=== PATIENT | male | born 1970 | race Caucasian/White ===

== ENCOUNTER 2017-01-03 05:55 | Day surgery (SDC) | payer OTHER ==
[~2017-01-03 05:55] MED LIST: Buffered Lidocaine 0.9% SYRIN* 5 ML/SYR SYRINGE INTRADERM ONE; Buffered Lidocaine 0.9% SYRIN* 5 ML/SYR SYRINGE ONE; Famotidine IV* 10 MG/ML 2 ML (20 mg) ONE
[2017-01-03] MEDS ORDERED: Famotidine IV* 10 MG/ML 2 ML (20 mg) IV ONE (06:00)
[2017-01-03] MEDS ORDERED: fentaNYL* 50 MCG/ML 2 ML VIAL (100 MCG VIAL) ONE (06:43)
[2017-01-03] MEDS ORDERED: KETAMINE HCL* 50 MG/ML 10 ML VIAL ONE (06:43)
[2017-01-03] MEDS ORDERED: Midazolam* 1 MG/ML 5 ML VIAL (5 MG) ONE ×2 (06:45)
[2017-01-03] MEDS ORDERED: DiMENhydriNATE IV* 50 MG/ML VIAL IV PUSH PRN (07:58)
[2017-01-03] MEDS ORDERED: oxyCODONE TAB* 5 MG TAB PO PRN (07:58)
[2017-01-03] MEDS ORDERED: Acetaminophen TAB* 325 MG PO PRN (07:58)
--- NOTE | 2017-01-03 08:01 | RAD ---
HISTORY: Mid back pain, remote trauma COMPARISONS: None TECHNIQUE: The following sequences were obtained of the thoracic spine: Sagittal T1 and T2-weighted images, sagittal STIR images, coronal T2-weighted images, and axial T2-weighted images. . FINDINGS: Localization is based on counting from C2 SPINAL CORD, CONUS, AND CAUDA EQUINA: The visualized spinal cord, conus, and cauda equina are normal in caliber, position, and signal intensity. ALIGNMENT: The alignment is normal. VERTEBRAL BODIES: The bones are normal in signal intensity. The vertebral bodies are preserved in height. There is mild anterolateral marginal osteophyte formation. JOINTS: There is mild osteoarthritis of the costovertebral articulations MUSCULATURE: Normal INTERVERTEBRAL DISCS: There is mild loss of intervertebral disc height and T2 signal throughout the spine. AXIAL IMAGES: There is no central canal stenosis or neuroforaminal narrowing. SOFT TISSUES: The visualized soft tissues of the chest and upper abdomen are unremarkable. OTHER: None. IMPRESSION: MILD DEGENERATIVE DISC DISEASE AND OSTEOARTHRITIS. NO SIGNIFICANT NEURAL FORAMINAL NARROWING OR CENTRAL CANAL STENOSIS.
[2017-01-03] MEDS ORDERED: Ondansetron INJ* 2 MG/ML VIAL ONE (08:02)
[2017-01-03] MEDS ORDERED: Propofol* 10 MG/ML 20 ML BTL IV PUSH ONE (08:02)
[2017-01-03 08:49] VITALS: BP 130/75
== END 2017-01-03 08:52 | disposition home or self-care (01) ==
LOC: OR 05:55
PROVIDERS: ATTEND Nurse Practitioner Family
DX: M54.6 Pain in thoracic spine (principal); M51.34 Other intervertebral disc degeneration, thoracic region; M47.894 Other spondylosis, thoracic region
CPT/HCPCS: 72146; J2250; J2405; J2704; J3010

== ENCOUNTER 2017-05-10 14:42 | Emergency (ER) | payer OTHER ==
[2017-05-10] MEDS ORDERED: Aspirin Low Dose CHEW TAB* 81 MG PO ONE (15:16)
[2017-05-10] MEDS ORDERED: NS 0.9% 1000 ML* 1,000 ML IV ONE (15:16)
--- NOTE | 2017-05-10 15:33 | RAD ---
INDICATION: Chest pain COMPARISON: February 05, 2016 TECHNIQUE: An AP portable view obtained at 1525 hours is submitted. FINDINGS: Bones/Soft Tissues: There are no acute bony findings. Cardiomediastinal: The cardiomediastinal silhouette is normal. Lungs: There are no infiltrates. Pleura: There are no pleural effusions. Other: None IMPRESSION: NO ACTIVE DISEASE.
[2017-05-10 15:43] LABS: Hematocrit 47 % (42-52); Hemoglobin 15.7 g/dl (14.0-18.0); Mean Corpuscular HGB Conc 34 g/dl (31-36); Mean Corpuscular Hemoglobin 29 pg (27-31); Mean Corpuscular Volume 86 fL (80-94); Mean Platelet Volume 7 um3 (7.4-10.4); Red Cell Distribution Width 14 % (10.5-15); White Blood Count 9.2 10^3/ul (3.5-10.8)
[2017-05-10 15:55] LABS: Albumin 4.6 g/dL (3.2-5.2); BUN/Creatinine Ratio 14.6 (8-20); C Reactive Protein 1.44 mg/L (< 5.00); Calcium 10.2 mg/dL (8.6-10.3); EGFR African American 119.4 (>60); EGFR Non-African American 92.9 (>60); Globulin 3.3 g/dL (2-4); Magnesium 2.1 mg/dL (1.9-2.7); Potassium 3.9 mmol/L (3.5-5.0); Total Bilirubin 0.6 mg/dL (0.2-1.0); Total Protein 7.9 g/dL (6.4-8.9)
[2017-05-10 15:58] LABS: Troponin I 0.01 ng/mL (<0.04)
[2017-05-10 15:59] LABS: Urine Bacteria Absent (Absent); Urine Bilirubin Negative (Negative); Urine Glucose Negative (Negative); Urine Nitrite Negative (Negative)
[2017-05-10 16:51] LABS: TSH (Thyroid Stimulating Horm) 0.86 mcIU/mL (0.34-5.60)
--- NOTE | 2017-05-10 19:03 | ED ---
Neena Thomas Emily, scribed for Moreno Wills MD on 05/10/17 at 1515 . HPI Chest Pain - HPI Summary HPI Summary: This patient is a 46 year old M presenting to [facility] accompanied by family with a chief complaint of mid sternal CP that radiates across his chest and into neck that began earlier today. The patient rates the pain 5/10 in severity. Symptoms aggravated by nothing. Symptoms alleviated by nothing. Patient reports numbness on tip of tongue, numbness on roof of mouth, SOB, occipital head pain. Patient denies fever. Medications reviewed. - History of Current Complaint Chief Complaint: EDChestPainROMI Time Seen by Provider: 05/10/17 15:02 Hx Obtained From: Patient Onset/Duration: Started Hours Ago, Still Present Timing: Constant Initial Severity: Moderate Current Severity: Moderate Pain Intensity: 5 Pain Scale Used: 0-10 Numeric Chest Pain Location: Mid Sternal Chest Pain Radiates: Yes Chest Pain Radiates To:: Neck Aggravating Factor(s): Nothing Alleviating Factor(s): Nothing Associated Signs and Symptoms: Positive: Other: - Positive numbness on tip of tongue, numbness on roof of mouth, SOB, occipital head pain. Negative fever - Allergy/Home Medications Allergies/Adverse Reactions: Allergies Allergy/AdvReac Type Severity Reaction Status Date / Time Adhesive Tape Allergy Severe Rash Verified 05/10/17 15:10 Niacin Allergy Severe Anaphylatic Verified 05/10/17 15:10 Shock Home Medications: Home Medications Baclofen TAB* [Lioresal TAB*] 10 mg PO TID 05/10/17 [History Confirmed 05/10/17] Ranitidine TAB (NF) [Zantac TAB (NF)] 150 mg PO BID PRN 05/10/17 [History Confirmed 05/10/17] PMH/Surg Hx/FS Hx/Imm Hx Previously Healthy: No Endocrine/Hematology History: Denies: Hx Diabetes Cardiovascular History: Reports: Hx Hypercholesterolemia, Hx Hypertension - controlled with medication, Other Cardiovascular Problems/Disorders - hyperlipidemia Denies: Hx Pacemaker/ICD Respiratory History: Reports: Hx Asthma Denies: Other Respiratory Problems/Disorders GI History: Reports: Hx Gastroesophageal Reflux Disease - controlled with medication, Hx Hiatal Hernia Denies: Other GI Disorders History: Denies: Hx Dialysis, Hx Renal Disease Musculoskeletal History: Reports: Hx Arthritis, Hx Bursitis, Hx Tendonitis, Other Musculoskeletal History - 01/03/17 MRI to diagnose issues lower issues with lower back Sensory History: Reports: Hx Contacts or Glasses - wears glasses Denies: Hx Hearing Aid Opthamlomology History: Reports: Hx Contacts or Glasses - wears glasses Neurological History: Reports: Hx Headaches - hx of, Hx Migraine, Other Neuro Impairments/Disorders - hx of traumatic brain injury Psychiatric History: Reports: Hx Anxiety - severe claustrophobia Denies: Hx Panic Disorder - Surgical History Surgery Procedure, Year, and Place: RIGHT CLAVICLE REPAIR, [place], [facility] [place] removal x3 right groin at doctors office. CYST BEHIND EAR Hx Anesthesia Reactions: No Infectious Disease History: No Infectious Disease History: Denies: Traveled Outside the [place] in Last 30 Days - Family History Known Family History: Positive: Cardiac Disease, Hypertension, Other - GERD - Social History Occupation: Unemployed Lives: With Family Alcohol Use: None Alcohol Amount: N/A beer Substance Use Type: Reports: None Hx Tobacco Use: Yes Smoking Status (MU): Former Smoker Type: Cigarettes Amount Used/How Often: 1 1/2 PPD Have You Smoked in the Last Year: Yes Review of Systems Negative: Fever Positive: Chest Pain Positive: Shortness Of Breath Positive: Headache, Numbness - On tip of tongue and roof of mouth All Other Systems Reviewed And Are Negative: Yes Physical Exam Triage Information Reviewed: Yes Vital Signs On Initial Exam: Initial Vitals Temp Pulse Resp BP Pulse Ox 97.0 F 65 16 176/98 98 05/10/17 14:45 05/10/17 14:45 05/10/17 14:45 05/10/17 14:45 05/10/17 14:45 Vital Signs Reviewed: Yes Appearance: Positive: Well-Appearing, No Pain Distress Skin: Positive: Warm, Skin Color Reflects Adequate Perfusion, Dry Head/Face: Positive: Normal Head/Face Inspection Eyes: Positive: EOMI, LALO ENT: Positive: Normal ENT inspection Neck: Positive: Supple, Nontender Respiratory/Lung Sounds: Positive: Clear to Auscultation, Breath Sounds Present Cardiovascular: Positive: RRR Abdomen Description: Positive: Soft, Other: - Tenderness in the epigastric region Bowel Sounds: Positive: Present Musculoskeletal: Positive: Normal, Strength/ROM Intact Neurological: Positive: Normal, Sensory/Motor Intact, Alert, Oriented to Person Place, Time Psychiatric: Positive: Affect/Mood Appropriate - Silvano Coma Scale Coma Scale Total: 15 Diagnostics - Vital Signs Vital Signs Temp Pulse Resp BP Pulse Ox 05/10/17 15:06 65 19 95 05/10/17 15:05 153/84 05/10/17 14:45 97.0 F 65 16 176/98 98 - Laboratory Lab Results: Lab Results 05/10/17 05/10/17 05/10/17 Range/Units 15:30 15:30 15:30 WBC (3.5-10.8) 10^3/ul RBC (4.0-5.4) 10^6/ul Hgb (14.0-18.0) g/dl Hct (42-52) % MCV (80-94) fL MCH (27-31) pg MCHC (31-36) g/dl RDW (10.5-15) % Plt Count (150-450) 10^3/ul MPV (7.4-10.4) um3 Neut % (Auto) (38-83) % Lymph % (Auto) (25-47) % Kane % (Auto) (1-9) % Eos % (Auto) (0-6) % Baso % (Auto) (0-2) % Absolute Neuts (auto) (1.5-7.7) 10^3/ul Absolute Lymphs (auto) (1.0-4.8) 10^3/ul Absolute Monos (auto) (0-0.8) 10^3/ul Absolute Eos (auto) (0-0.6) 10^3/ul Absolute Basos (auto) (0-0.2) 10^3/ul Absolute Nucleated RBC 10^3/ul Nucleated RBC % INR (Anticoag Therapy) 0.89 (0.77-1.02) APTT 31.7 (26.0-36.3) seconds D-Dimer, Quantitative < 200 (Less Than 230) ng/mL Sodium 140 (133-145) mmol/L Potassium 3.9 (3.5-5.0) mmol/L Chloride 105 (101-111) mmol/L Carbon Dioxide 28 (22-32) mmol/L Anion Gap 7 (2-11) mmol/L BUN 13 (6-24) mg/dL Creatinine 0.89 (0.67-1.17) mg/dL Est GFR ( Amer) 119.4 (>60) Est GFR (Non-Af Amer) 92.9 (>60) BUN/Creatinine Ratio 14.6 (8-20) Glucose 102 H (70-100) mg/dL Lactic Acid (0.5-2.0) mmol/L Calcium 10.2 (8.6-10.3) mg/dL Magnesium 2.1 (1.9-2.7) mg/dL Total Bilirubin 0.60 (0.2-1.0) mg/dL AST 19 (13-39) U/L ALT 21 (7-52) U/L Alkaline Phosphatase 44 (34-104) U/L Total Creatine Kinase 152 (10-223) U/L CK-MB (CK-2) 2.5 (0.6-6.3) ng/mL Troponin I 0.01 (<0.04) ng/mL C-Reactive Protein 1.44 (< 5.00) mg/L B-Natriuretic Peptide 36 ( - 100) pg/mL Total Protein 7.9 (6.4-8.9) g/dL Albumin 4.6 (3.2-5.2) g/dL Globulin 3.3 (2-4) g/dL Albumin/Globulin Ratio 1.4 (1-3) Lipase 36 (11.0-82.0) U/L TSH 0.86 (0.34-5.60) mcIU/mL Urine Color Urine Appearance Urine pH (5-9) Ur Specific Morton (1.010-1.030) Urine Protein (Negative) Urine Ketones (Negative) Urine Blood (Negative) Urine Nitrate (Negative) Urine Bilirubin (Negative) Urine Urobilinogen (Negative) Ur Leukocyte Esterase (Negative) Urine WBC (Auto) (Absent) Urine RBC (Auto) (Absent) Urine Bacteria (Absent) Urine Glucose (Negative) 05/10/17 05/10/17 05/10/17 Range/Units 15:30 15:30 15:42 WBC 9.2 (3.5-10.8) 10^3/ul RBC 5.40 (4.0-5.4) 10^6/ul Hgb 15.7 (14.0-18.0) g/dl Hct 47 (42-52) % MCV 86 (80-94) fL MCH 29 (27-31) pg MCHC 34 (31-36) g/dl RDW 14 (10.5-15) % Plt Count 205 (150-450) 10^3/ul MPV 7 L (7.4-10.4) um3 Neut % (Auto) 66.1 (38-83) % Lymph % (Auto) 22.8 L (25-47) % Kane % (Auto) 6.3 (1-9) % Eos % (Auto) 3.3 (0-6) % Baso % (Auto) 1.5 (0-2) % Absolute Neuts (auto) 6.1 (1.5-7.7) 10^3/ul Absolute Lymphs (auto) 2.1 (1.0-4.8) 10^3/ul Absolute Monos (auto) 0.6 (0-0.8) 10^3/ul Absolute Eos (auto) 0.3 (0-0.6) 10^3/ul Absolute Basos (auto) 0.1 (0-0.2) 10^3/ul Absolute Nucleated RBC 0.01 10^3/ul Nucleated RBC % 0.1 INR (Anticoag Therapy) (0.77-1.02) APTT (26.0-36.3) seconds D-Dimer, Quantitative (Less Than 230) ng/mL Sodium (133-145) mmol/L Potassium (3.5-5.0) mmol/L Chloride (101-111) mmol/L Carbon Dioxide (22-32) mmol/L Anion Gap (2-11) mmol/L BUN (6-24) mg/dL Creatinine (0.67-1.17) mg/dL Est GFR ( Amer) (>60) Est GFR (Non-Af Amer) (>60) BUN/Creatinine Ratio (8-20) Glucose (70-100) mg/dL Lactic Acid 0.7 (0.5-2.0) mmol/L Calcium (8.6-10.3) mg/dL Magnesium (1.9-2.7) mg/dL Total Bilirubin (0.2-1.0) mg/dL AST (13-39) U/L ALT (7-52) U/L Alkaline Phosphatase (34-104) U/L Total Creatine Kinase (10-223) U/L CK-MB (CK-2) (0.6-6.3) ng/mL Troponin I (<0.04) ng/mL C-Reactive Protein (< 5.00) mg/L B-Natriuretic Peptide ( - 100) pg/mL Total Protein (6.4-8.9) g/dL Albumin (3.2-5.2) g/dL Globulin (2-4) g/dL Albumin/Globulin Ratio (1-3) Lipase (11.0-82.0) U/L TSH (0.34-5.60) mcIU/mL Urine Color Straw Urine Appearance Clear Urine pH 7.0 (5-9) Ur Specific Morton 1.004 L (1.010-1.030) Urine Protein Negative (Negative) Urine Ketones Negative (Negative) Urine Blood 1+ H (Negative) Urine Nitrate Negative (Negative) Urine Bilirubin Negative (Negative) Urine Urobilinogen Negative (Negative) Ur Leukocyte Esterase Negative (Negative) Urine WBC (Auto) Trace(0-5/hpf) (Absent) Urine RBC (Auto) Trace(0-2/hpf) (Absent) Urine Bacteria Absent (Absent) Urine Glucose Negative (Negative) 05/10/17 Range/Units 18:00 WBC (3.5-10.8) 10^3/ul RBC (4.0-5.4) 10^6/ul Hgb (14.0-18.0) g/dl Hct (42-52) % MCV (80-94) fL MCH (27-31) pg MCHC (31-36) g/dl RDW (10.5-15) % Plt Count (150-450) 10^3/ul MPV (7.4-10.4) um3 Neut % (Auto) (38-83) % Lymph % (Auto) (25-47) % Kane % (Auto) (1-9) % Eos % (Auto) (0-6) % Baso % (Auto) (0-2) % Absolute Neuts (auto) (1.5-7.7) 10^3/ul Absolute Lymphs (auto) (1.0-4.8) 10^3/ul Absolute Monos (auto) (0-0.8) 10^3/ul Absolute Eos (auto) (0-0.6) 10^3/ul Absolute Basos (auto) (0-0.2) 10^3/ul Absolute Nucleated RBC 10^3/ul Nucleated RBC % INR (Anticoag Therapy) (0.77-1.02) APTT (26.0-36.3) seconds D-Dimer, Quantitative (Less Than 230) ng/mL Sodium (133-145) mmol/L Potassium (3.5-5.0) mmol/L Chloride (101-111) mmol/L Carbon Dioxide (22-32) mmol/L Anion Gap (2-11) mmol/L BUN (6-24) mg/dL Creatinine (0.67-1.17) mg/dL Est GFR ( Amer) (>60) Est GFR (Non-Af Amer) (>60) BUN/Creatinine Ratio (8-20) Glucose (70-100) mg/dL Lactic Acid (0.5-2.0) mmol/L Calcium (8.6-10.3) mg/dL Magnesium (1.9-2.7) mg/dL Total Bilirubin (0.2-1.0) mg/dL AST (13-39) U/L ALT (7-52) U/L Alkaline Phosphatase (34-104) U/L Total Creatine Kinase (10-223) U/L CK-MB (CK-2) (0.6-6.3) ng/mL Troponin I 0.03 (<0.04) ng/mL C-Reactive Protein (< 5.00) mg/L B-Natriuretic Peptide ( - 100) pg/mL Total Protein (6.4-8.9) g/dL Albumin (3.2-5.2) g/dL Globulin (2-4) g/dL Albumin/Globulin Ratio (1-3) Lipase (11.0-82.0) U/L TSH (0.34-5.60) mcIU/mL Urine Color Urine Appearance Urine pH (5-9) Ur Specific Morton (1.010-1.030) Urine Protein (Negative) Urine Ketones (Negative) Urine Blood (Negative) Urine Nitrate (Negative) Urine Bilirubin (Negative) Urine Urobilinogen (Negative) Ur Leukocyte Esterase (Negative) Urine WBC (Auto) (Absent) Urine RBC (Auto) (Absent) Urine Bacteria (Absent) Urine Glucose (Negative) Result Diagrams: 05/10/17 15:30 05/10/17 15:30 Lab Statement: Any lab studies that have been ordered have been reviewed, and results considered in the medical decision making process. - Radiology CXR Radiology Interpretation Completed By: Radiologist - CXR reveals, per radiologist, no active disease. Dr. Wills has reviewed this radiology report. - EKG 1453 Cardiac Rate: NL EKG Rhythm: Sinus Rhythm - 62 BPM EKG Interpretation: No ectopy. Flipped T waves in III 1808 Cardiac Rate: Bradycardia EKG Rhythm: Sinus Rhythm - 57 BPM EKG Interpretation: Flipped T in III. No ectopy EKG Comparison: No Significant Change - from EKG earlier today Chest Pain Course/Dx - Course Course Of Treatment: PAIN WENT AWAY IN THE ED. DISCUSSED RESULTS WITH THE PATIENT AND HIS . WE DISCUSSED ADMISSION; HE DECLINED. HE PREFERED TO RECHECK A TROPONIN. THE REPEAT TROPONIN WAS INCREASED TO 0.03 FROM 0.01. WHILE STILL NORMAL, THIS IS AN INCREASE. THIS WAS DISCUSSED WITH THE PATIENT AND HIS AND I RECOMMENDED ADMISSION; THE PATIENT DECLINED ADMISSION. HE PLANS TO FOLLOW UP WITH HIS PMD. HE AGREED TO RETURN TO THE EMERGENCY DEPARTMENT WITH ANY CHEST PAIN OR ANY CONCERNS. HE WAS CHEST PAIN FREE AT DISCHARGE. - Diagnoses Provider Diagnoses: Chest pain Discharge - Discharge Plan Condition: Stable Disposition: HOME Patient Education Materials: Chest Pain (ED) Referrals: Aden Dumont NP [Primary Care Provider] - Additional Instructions: FOLLOW UP WITH YOUR DOCTOR. YOUR REPEAT TROPONIN WAS NORMAL BUT, IT DID INCREASE WHICH MAY INDICATE DAMAGE TO THE HEART. CALL YOU DOCTOR TO ARRANGE A CARDIAC STRESS TEST AND RETURN TO THE EMERGENCY DEPARTMENT AT ANY TIME WITH ANY CHEST PAIN OR CONCERNS. RETURN TO THE EMERGENCY DEPARTMENT FOR ANY WORSENING OF YOUR CONDITION: CHEST PAIN, SHORTNESS OF BREATH, YOU FEEL ILL OR QUESTIONS OR CONCERNS. The documentation as recorded by the Neena nolasco Emily accurately reflects the service I personally performed and the decisions made by me, Moreno Wills MD.
[2017-05-10 19:28] VITALS: BP 139/86
== END 2017-05-10 19:28 | disposition home or self-care (01) ==
LOC: ED 14:42
DX: R07.89 Other chest pain (principal); R20.0 Anesthesia of skin; R06.02 Shortness of breath; R51 Headache; R00.1 Bradycardia, unspecified; E78.00 Pure hypercholesterolemia, unspecified; I10 Essential (primary) hypertension; E78.5 Hyperlipidemia, unspecified; J45.909 Unspecified asthma, uncomplicated; K21.9 Gastro-esophageal reflux disease without esophagitis; F41.9 Anxiety disorder, unspecified; F40.240 Claustrophobia; Z88.8 Allergy status to other drugs, medicaments and biological substances; Z91.048 Other nonmedicinal substance allergy status; Z87.891 Personal history of nicotine dependence
CPT/HCPCS: 36415; 71010; 80053; 81003; 81015; 82550; 82553; 83605; 83690; 83735; 83880; 84443; 84484; 85025; 85379; 85610; 85730; 86140; 93005; 96360; 99283; A9270-GY

== ENCOUNTER 2017-09-09 13:31 | Emergency (ER) | payer OTHER ==
--- NOTE | 2017-09-09 14:29 | RAD ---
HISTORY: Chest pain, shortness of breath COMPARISONS: May 10, 2017 VIEWS: 4: Frontal dual-energy and lateral views of the chest. FINDINGS: CARDIOMEDIASTINAL SILHOUETTE: The cardiomediastinal silhouette is normal. FREDERIC: The frederic are normal. PLEURA: The costophrenic angles are sharp. No pleural abnormalities are noted. LUNG PARENCHYMA: The lungs are clear. ABDOMEN: The upper abdomen is clear. There is no subphrenic gas. BONES AND SOFT TISSUES: No bone or soft tissue abnormalities are noted. OTHER: None. IMPRESSION: NO ACTIVE CARDIOPULMONARY DISEASE.
[2017-09-09] MEDS ORDERED: Nitroglycerin TAB 0.4 MG* 0.4 MG TAB SL ONE (14:33)
[2017-09-09] MEDS ORDERED: Aspirin 81 mg CHEW TAB* 81 MG TAB.CHEW PO ONE (14:33)
[2017-09-09 14:38] LABS: ABS Basophils 0.1 10^3/ul (0-0.2); ABS Eosinophils 0.2 10^3/ul (0-0.6); ABS Lymphocytes 1.5 10^3/ul (1.0-4.8); ABS Monocytes 0.4 10^3/ul (0-0.8); ABS Neutrophils 5.5 10^3/ul (1.5-7.7); ABS Nucleated RBC 0 10^3/ul; Eosinophil % 3.1 % (0-6); Hematocrit 48 % (42-52); Hemoglobin 16.2 g/dl (14.0-18.0); Lymphocyte % 19.5 % (25-47); Mean Corpuscular HGB Conc 34 g/dl (31-36); Mean Corpuscular Hemoglobin 29 pg (27-31); Mean Corpuscular Volume 87 fL (80-94); Mean Platelet Volume 7.1 um3 (7.4-10.4); Nucleated Red Blood Cells % 0.1; Platelet Count 210 10^3/ul (150-450); Red Blood Count 5.49 10^6/ul (4.0-5.4); Red Cell Distribution Width 13 % (10.5-15); White Blood Count 7.8 10^3/ul (3.5-10.8)
[2017-09-09 15:05] LABS: EGFR Non-African American 81.2 (>60)
[2017-09-09 18:29] VITALS: BP 000/00
--- NOTE | 2017-09-09 21:21 | CONS ---
ADDENDUM INCLUDED ON THIS REPORT CC: Dr. Lenz; Aden Dumont NP * CONSULTATION REPORT: DATE OF CONSULT: 09/09/17 CONSULTED TO: Ayo Umaña MD CONSULTATION REQUESTED BY: Brandon Glover MD in the Emergency Room. ATTENDING HOSPITALIST: Ayo Umaña MD * (DICTATED BY JUAN DAVID JACOB) CHIEF COMPLAINT: Chest pain. HISTORY OF PRESENT ILLNESS: Mr. Jay is a 46-year-old gentleman, who presented to the emergency room with complaints of sudden onset of retrosternal chest pain. The patient has a past medical history significant for COPD, hypertension, GERD with known hiatal hernia, hyperlipidemia, and a history of chest pain in the past. He tells me that he had a stress test done in April of last year; however, there was no record showing such diagnostic study. He explains occasional episodes of chest pain that he relates mostly to his hiatal hernia. He has been seen by a GI doctor at [place], [place] and is scheduled to see a surgeon to discuss hiatal hernia repair that he thinks is a source of his intermittent chest discomfort. He notes that his chest pain this afternoon appeared to have a sudden onset localized to the left side and radiated to his jaw and axilla. The pain lasted for a few minutes and eventually went away with no exacerbation factor or relieving factor. He felt a little dizzy with some headache, but denies any diaphoresis, nausea, vomiting or any other associated symptoms. The patient was evaluated in the emergency room and his EKG was obtained that revealed no acute changes indicating ischemia or ST depression. He also had laboratory workup that was all within normal limits as well as flat troponins. Given his age and and medical comorbidities, we were asked to see the patient for further evaluation and to rule out acute coronary syndrome. During discussion at the history part with the patient, he showed his desire to go home without any need for observation overnight. PAST MEDICAL HISTORY: As mentioned above, significant for COPD, back pain. The patient has been a chronic patient of pain clinic. He also has a history of GERD, hypertension, and right shoulder pain, cervical spondylosis without myelopathy, history of traumatic brain injury, hyperlipidemia, and history of recurrent chest pain. PAST SURGICAL HISTORY: Significant for right rotator cuff repair back in 2016 as well as a skin cyst excision 5 times. CURRENT MEDICATIONS: His medications at home include: 1. Norvasc 10 mg p.o. daily. 2. Aspirin 81 mg p.o. daily. 3. Baclofen 15/20 mg p.o. t.i.d. 4. Lotensin 10 mg p.o. daily. 5. Doxycycline 100 mg p.o. b.i.d. 6. Gabapentin 600 mg p.o. t.i.d. 7. Prevacid 15 mg p.o. b.i.d. 8. Mobic 15 mg p.o. daily. 9. Opana extended release oxymorphone 30 mg p.o. q.12 hours. 10. Inderal LA 160 mg p.o. daily. 11. Zantac 150 mg p.o. b.i.d. 12. Zocor 10 mg p.o. nightly. ALLERGIES: He is allergic to NIACIN and ADHESIVE TAPE. FAMILY HISTORY: He denies any family history of coronary artery disease or stroke. SOCIAL HISTORY: The patient is on disability. 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 He lives with his . He is a former smoker and alcohol drinker, who quit both of them approximately 5 years ago. He denies illicit drug use. His is a surrogate healthcare decision maker. REVIEW OF SYSTEMS: See HPI, otherwise 14-point review of systems is essentially negative. PHYSICAL EXAM: General: He is a healthy appearing, overweight, middle-aged male, appears comfortable, and in no acute distress or discomfort. Vitals revealed a temperature of 98.2, pulse of 58, respirations of 13, O2 sat of 96% on room air, and blood pressure of 135/80. HEENT: Head is normocephalic, atraumatic. Sclerae anicteric. PERRLA. EOMs intact. Oropharynx is pink and moist. Neck: Supple. Trachea midline. No cervical adenopathy or thyromegaly. Lungs: Clear to auscultation bilaterally. Heart: Regular rate and rhythm. Normal S1 and S2 without rubs, murmurs or gallops. Back with normal curvature. No CVA tenderness. Abdomen: Soft, nontender, and nondistended. There are no hernias, masses or hepatosplenomegaly. Bowel sounds were normoactive in all quadrants. Extremities: Without cyanosis, clubbing or edema. Neurologic: Grossly intact. Rectal Exam: Deferred at this time. DIAGNOSTIC STUDIES/LAB DATA: Laboratory workup: CBC today with white count of 7800, hemoglobin 16.2, hematocrit of 48, and platelets of 210. Chemistry with sodium 141, potassium 4.1, chloride 105, CO2 of 28, BUN 12, creatinine 1.0. His glucose is 112 and hemoglobin A1c has not been checked since April 2015 at 6.3 and lactic acid normal, troponin was 0 and 0 at draws at 1430 and 1630. LFTs within normal limits. Accessory Diagnostic Data: EKG was done today and reveled no acute ST changes. IMPRESSION: A 46-year-old gentleman with a past medical history of hypertension , hyperlipidemia, obesity, and frequent chest pain, who was seen in emergency room today with complaints of sudden onset of substernal chest pain that started this afternoon requiring observation admission to rule out acute coronary syndrome. PLAN: 1. Chest pain. I went on and discussed with the patient all the findings of his physical exam and laboratory workup. He wishes to go home after he learned that his second troponin was negative. I expressed to him that ultimate risks of leaving including cardiac event or even . The patient understands the risks involved and he wishes to go home and he said he would return to to the emergency room if he experienced any recurrent chest pain tonight. I discussed the case with Dr. Glover, who will prepare AMA paperwork to be signed by the patient. 2. Hypertension, seemed to be controlled. He will continue his medication at home. 3. Hyperlipidemia. He will continue his statin at home. It is to be noted that the patient is a full code and again, he will likely to sign AMA and leave from the emergency department, and he was advised to return if any recurrent chest discomfort. JUAN DAVID JACOB ADDENDUM: This case was discussed and reviewed with JUAN DAVID Jacob. Mr. Jay is a 46-year-old male with a past medical history of COPD, chronic pain, GERD, hypertension, hyperlipidemia, obesity that presents to the emergency room with complaints of chest pain to the left side of his chest radiating to his left arm. He accepted aspirin in the emergency room, but refused nitroglycerin stating that they would cause a headache. His EKG showed sinus rhythm at 63 beats per minute with T-wave inversions in lead III, flat T- waves in aVF, but those changes were already present in April 2017. The patient reports negative stress test as outpatient 4 months ago, but the report is not available at this time. His first troponin was negative and plan was for the patient to be admitted as observation to rule out coronary syndrome and to have a repeat stress test if necessary. The report of his prior stress test was requested, but is not yet available. Unfortunately, the patient decided that he does not want to stay in the hospital and will sign out from the emergency room against medical advice. He was advised about the risk of his decision as his workup is not complete and at this point, it is not clear if his chest pain is cardiac in nature or not. He is aware of the risk including but not limited to fatal arrhythmia and . He is willing to take this risk at this time and will leave the emergency room against medical advice. AYO Umaña MD [id number]/[facility] #: [id number] Rito [id number]/CPS #: [id number] OTF
--- NOTE | 2017-09-09 21:29 | CONS ---
CC: Dr. Lenz; Aden Dumont NP * CONSULTATION REPORT: ADDENDUM: This case was discussed and reviewed with JUAN DAVID Pope. Mr. Jay is a 46-year-old male with a past medical history of COPD, chronic pain, GERD, hypertension, hyperlipidemia, obesity that presents to the emergency room with complaints of chest pain to the left side of his chest radiating to his left arm. He accepted aspirin in the emergency room, but refused nitroglycerin stating that they would cause a headache. His EKG showed sinus rhythm at 63 beats per minute with T-wave inversions in lead III, flat T- waves in aVF, but those changes were already present in April 2017. The patient reports negative stress test as outpatient 4 months ago, but the report is not available at this time. His first troponin was negative and plan was for the patient to be admitted as observation to rule out coronary syndrome and to have a repeat stress test if necessary. The report of his prior stress test was requested, but is not available at this time. Unfortunately, the patient decided that he does not want to stay in the hospital and will sign out from the emergency room against medical advice. He was advised about the risk of his decision as his workup is not complete and at this point, it is not clear if his chest pain is cardiac in nature or not. He is aware of the risk including but not limited to fatal arrhythmia and . He is willing to take this risk at this time and will leave the emergency room against medical advice. [id number]/[facility] #: [id number] OTF
== END 2017-09-09 18:27 | disposition left against medical advice (07) ==
LOC: ED 13:31
DX: R07.9 Chest pain, unspecified (principal); I10 Essential (primary) hypertension; E78.5 Hyperlipidemia, unspecified; Z79.82 Long term (current) use of aspirin
CPT/HCPCS: 36415; 71046; 80053; 83605; 84484; 85025; 93005; 99282; A9270-GY

== ENCOUNTER 2018-05-26 15:27 | Emergency (ER) | payer OTHER ==
--- NOTE | 2018-05-26 15:34 | ED ---
HPI Chest Pain - HPI Summary HPI Summary: Patient is a 47-year-old male with a history of chronic pain presents to the ED with chest pain acute onset at 1:30p after fighting with his . No hx of anxiety, but a significant hx of presenting to the ED with chest pains. He states they always do a full workup - but never find the root cause. States just prior to arrival he took 3 baby chewable aspirin, however the pain remained. On arrival to the ED the pain is dissipated from a 9 out of 10 to a 1 out of 10. He endorses pain which is sharp like occurring in the upper chest area radiating down the right arm. Denies any nausea, vomiting, diarrhea, diaphoresis, recent illness, fevers, sweats, chills. Denies any weakness or headaches. He states he feels at his baseline otherwise. He does take a baby aspirin, simvastatin and panel daily. Previously a patient of Dr. Mathias. - History of Current Complaint Time Seen by Provider: 05/26/18 15:28 Hx Obtained From: Patient Onset/Duration: Started Hours Ago Timing: Constant Initial Severity: Moderate Pain Scale Used: Adult Non Verbal Chest Pain Location: Mid Sternal Chest Pain Radiates: Yes Chest Pain Radiates To:: Arm - right Character: Crushing Aggravating Factor(s): Nothing Alleviating Factor(s): Rest Associated Signs and Symptoms: Positive: Negative, Anxiety, Recent Stress. Negative: Headaches, Numbness, Chills, Lightheadedness, Diaphoresis, Calf Pain/ Swelling, Wheezing, Nasal Congestion - Risk Factors Pulmonary Embolism Risk Factors: Negative TAD Risk Factors: Negative AMI/ACS Risk Factors: Sedentary Lifestyle, Obesity - Allergy/Home Medications Allergies/Adverse Reactions: Allergies Allergy/AdvReac Type Severity Reaction Status Date / Time Adhesive Tape Allergy Severe Rash Verified 04/23/18 08:24 niacin Allergy Anaphylatic Verified 04/23/18 08:24 Shock PMH/Surg Hx/FS Hx/Imm Hx Previously Healthy: Yes Endocrine/Hematology History: Denies: Hx Diabetes Cardiovascular History: Reports: Hx Hypercholesterolemia, Hx Hypertension - ON MEDICATION FOR, Other Cardiovascular Problems/Disorders - hyperlipidemia Denies: Hx Pacemaker/ICD Respiratory History: Reports: Hx Asthma Denies: Other Respiratory Problems/Disorders GI History: Reports: Hx Gastroesophageal Reflux Disease - ON MEDICATION FOR, Hx Hiatal Hernia Denies: Other GI Disorders History: Denies: Hx Dialysis, Hx Renal Disease Musculoskeletal History: Reports: Hx Arthritis - SPINE, LEFT KNEE, Hx Bursitis - LEFT KNEE, Hx Tendonitis - LEFT KNEE, Other Musculoskeletal History - 01/03/17 MRI to diagnose issues lower issues with lower back Sensory History: Reports: Hx Contacts or Glasses - glasses Denies: Hx Hearing Aid Opthamlomology History: Reports: Hx Contacts or Glasses - glasses Neurological History: Reports: Hx Headaches - HX OF, STILL CURRENTLY GETS- ON MEDICATION FOR, Hx Migraine - HX OF, STILL CURRENTLY GETS- ON MEDICATION FOR, Other Neuro Impairments/Disorders - hx of traumatic brain injury ~2-3 YEARS AGO Psychiatric History: Reports: Hx Anxiety - severe claustrophobia Denies: Hx Panic Disorder - Surgical History Surgery Procedure, Year, and Place: [place] [facility] [place] right groin at doctors office. CYST BEHIND EAR. COLONOSCOPY. ENDOSCOPY Hx Anesthesia Reactions: No - Immunization History Hx Pertussis Vaccination: No Immunizations Up to Date: Yes - Family History Known Family History: Positive: Cardiac Disease, Hypertension, Other - GERD - Social History Occupation: Employed Full-time Lives: With Family Alcohol Use: None Alcohol Amount: N/A beer Hx Substance Use: No Substance Use Type: Reports: None Hx Tobacco Use: Yes Smoking Status (MU): Former Smoker Type: Cigarettes Amount Used/How Often: 1 1/2 PPD X 30+ YEARS Have You Smoked in the Last Year: No Review of Systems Negative: Fever, Chills, Fatigue, Skin Diaphoresis Positive: Chest Pain. Negative: Palpitations Negative: Shortness Of Breath, Cough Negative: Abdominal Pain, Vomiting, Diarrhea, Nausea Genitourinary: Negative Positive: no symptoms reported, see HPI Negative: Arthralgia Skin: Negative Positive: Anxious All Other Systems Reviewed And Are Negative: Yes Physical Exam Triage Information Reviewed: Yes Vital Signs Reviewed: Yes Appearance: Positive: Well-Appearing, Well-Nourished Skin: Positive: Warm, Skin Color Reflects Adequate Perfusion Head/Face: Positive: Normal Head/Face Inspection Eyes: Positive: EOMI Neck: Positive: Supple, No Lymphadenopathy Respiratory/Lung Sounds: Positive: Clear to Auscultation, Breath Sounds Present Cardiovascular: Positive: RRR, Pulses are Symmetrical in both Upper and Lower Extremities Musculoskeletal: Positive: Normal, Strength/ROM Intact Neurological: Positive: Speech Normal Psychiatric: Positive: Normal AVPU Assessment: Alert Diagnostics - Laboratory Result Diagrams: 05/26/18 16:22 05/26/18 16:22 Lab Statement: Any lab studies that have been ordered have been reviewed, and results considered in the medical decision making process. Chest Pain Course/Dx - Course Course Of Treatment: During the course of treatment, cardiac workup was obtained. Troponin 0.00. All of the labs WNL. Chest x-ray WNL. Discussed treatment plans with patient and offered admission for further workup. He declines this. I stated due to his troponin and chest x-ray both negative and he is currently asymptomatic, he is able to follow back up with his PCP. He has also had multiple visits for chest pain in the past with negative workups. It appears this was anxiety induced atypical chest pain. EKG NSR. - Chest Pain Differential Diagnosis/HQI/PQRI: Angina, Chest Wall - Diagnoses Provider Diagnoses: Chest pain due to psychological stress, Atypical chest pain Discharge - Sign-Out/Discharge Documenting (check all that apply): Patient Departure - Discharge Plan Condition: Stable Disposition: HOME Referrals: Aden Dumont NP [Primary Care Provider] - Additional Instructions: Follow up as soon as possible with your PCP Today, as discussed, troponin and EKG are both normal - Billing Disposition and Condition Condition: STABLE Disposition: Home
--- OUTSIDE RECORDS SUMMARY | 2018-05-26 15:45 | XMS REPORT | Continuity of Care Document ---
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 Aden Dumont Primary Care Physician Unavailable Payers Type Date Identification Numbers Payment Provider Subscriber Policy Number: [id number] [facility] Anurag Cantu [employer] PayID: [id number] [address] [place] [address] Advance Directives Description No Information Available Problems Description No Information Family History Description No Information Available Social History Type Date Description Comments Sex Unknown Allergies, Adverse Reactions, Alerts Description No Known Drug Allergies Medications Medication Date Status Form Strength Qnty SIG Indications Ordering Provider Amlodipine 0 Active Tablets 10mg 1 by Unknown Besylate 000 mouth every day Benazepril HCL 0 Active Tablets 10mg Unknown 000 Ranitidine HCL 0 Active Capsules 150mg 1 by Unknown 000 mouth twice a day Gabapentin 0 Active Capsules 300mg 2 by Unknown 000 mouth three times a day Simvastatin 000 Active Tablets 10mg 1 by Unknown 000 mouth every day Inderal LA 0 Active Caps ER 1 by Unknown 000 24HR mouth every day Lansoprazole [address] 15mg 1 by Unknown 000 mouth every day Meloxicam 0 Active Tablets 7.5mg 1 by Unknown 000 mouth every day Baclofen /0 Active Tablets Unknown 000 Aspir-[address] 81mg 1 by Unknown 000 mouth every day Immunizations Description No Information Available Vital Signs Date Vital Result Comment 05/08/2018 1:28pm Weight 258.00 lb Height 68 inches 5'8" BMI (Body Mass Index) 39.2 kg/m2 BP Systolic 134 mmHg BP Diastolic 87 mmHg Heart Rate 92 /min O2 % BldC Oximetry 96 % Body Temperature 98.5 F Pain Level 4 Results Description No Information Available Procedures Description No Information Available Encounters Description No Information Available Plan of Treatment No Information Available
[2018-05-26 16:31] LABS: ABS Basophils 0.1 10^3/ul (0-0.2); ABS Eosinophils 0.3 10^3/ul (0-0.6); ABS Lymphocytes 1.4 10^3/ul (1.0-4.8); ABS Monocytes 0.5 10^3/ul (0-0.8); ABS Neutrophils 7.9 10^3/ul (1.5-7.7); ABS Nucleated RBC 0 10^3/ul; Eosinophil % 2.7 %; Hematocrit 47 % (42-52); Hemoglobin 15.6 g/dl (14.0-18.0); Lymphocyte % 13.5 %; Mean Corpuscular HGB Conc 33 g/dl (31-36); Mean Corpuscular Hemoglobin 29 pg (27-31); Mean Corpuscular Volume 88 fL (80-94); Mean Platelet Volume 7.2 fL (7.4-10.4); Nucleated Red Blood Cells % 0; Platelet Count 205 10^3/ul (150-450); Red Cell Distribution Width 13 % (10.5-15); White Blood Count 10.1 10^3/ul (3.5-10.8)
[2018-05-26 16:37] LABS: INR 0.9 (0.77-1.02)
[2018-05-26 16:49] LABS: Albumin 4.7 g/dL (3.2-5.2); Albumin/Globulin Ratio 1.5 (1-3); BUN/Creatinine Ratio 13.3 (8-20); Calcium 9.7 mg/dL (8.6-10.3); EGFR Non-African American 82.7 (>60); Globulin 3.1 g/dL (2-4); Magnesium 2.1 mg/dL (1.9-2.7); Potassium 4.2 mmol/L (3.5-5.0); Total Bilirubin 0.5 mg/dL (0.2-1.0); Total Protein 7.8 g/dL (6.4-8.9)
[2018-05-26 17:16] VITALS: BP 168/98
== END 2018-05-26 17:16 | disposition home or self-care (01) ==
LOC: ED 15:27
DX: R07.89 Other chest pain (principal); F43.9 Reaction to severe stress, unspecified; Z87.891 Personal history of nicotine dependence; E78.00 Pure hypercholesterolemia, unspecified; I10 Essential (primary) hypertension; K21.9 Gastro-esophageal reflux disease without esophagitis; J45.909 Unspecified asthma, uncomplicated; E78.5 Hyperlipidemia, unspecified; E66.9 Obesity, unspecified
CPT/HCPCS: 36415; 71046; 80053; 82553; 83605; 83735; 83880; 84484; 85025; 85610; 93005; 99282

== ENCOUNTER 2018-12-05 16:25 | Emergency (ER) | payer OTHER ==
--- OUTSIDE RECORDS SUMMARY | 2018-12-05 16:30 | XMS REPORT | Continuity of Care Document ---
:1970 External Reference #:[id number] Author Name Tiana Desir Care Team Providers Name Role Phone Aden Dumont NP Primary Care Physician Unavailable Payers Date Identification Numbers Payment Provider Subscriber Policy Number: [id number] Zbigniew Jay JR Group Name: [id number] [address] PayID: [id number] [place] [address] Effective: 2011 Policy Number: [id number] RASTA Wayne Anurag Jay JR Expires: 2013 PayID: [id number] [address] [address] [place] [address] Advance Directives Type Date Description Status Comment Other Directive 03/19/2016 Health Care Proxy Current and Verified Problems Active Problems Provider Date Chest pain Richard Purvis M.D., [facility], [facility] Onset: 05/10/2015 Hyperlipidemia Richard Purvis M.D., [facility], [facility] Onset: 05/10/2015 Essential hypertension Richard Purvis M.D., [facility], [facility] Onset: 05/10/2015 Tobacco use Richard Purvis M.D., [facility], [facility] Onset: 05/10/2015 Chronic pain Aden Dumont NP Onset: 08/13/2015 Gastroesophageal reflux disease Aden Dumont NP Onset: 08/13/2015 History of traumatic brain injury Aden Dumnot NP Onset: 09/08/2015 Claustrophobia Aden Dumont NP Onset: 09/12/2015 Note: Non responsive to oral sedatives. Unable to have MRI's or nuclear stress test because of severe claustrophobia Neck pain Hardeep Mccrary M.D. Onset: 01/01/2016 Low back pain Hardeep Mccrary M.D. Onset: 01/01/2016 Sprain of shoulder and upper arm Vanessa Lay MD Onset: 02/22/2016 Injury of shoulder region Vanessa Lay MD Onset: 02/22/2016 Cervical spondylosis without myelopathy Hardeep Mccrary M.D. Onset: 03/04/2016 Localized, secondary osteoarthritis of the Vanessa Lay MD Onset: 04/23/2016 shoulder region Family History Date Family Member(s) Observation Comments General Heart Disease General Thyroid Disease General Diabetes General Cancer Father No Current Problems Mother due to Unknown () Siblings 3 Social History Type Date Description Comments Sex Unknown Marital Status Lives With Occupation Unemployed since 1997 Tobacco Use Start: Unknown End: Former Cigarette Smoker Unknown Tobacco Use Start: Unknown Vaping No nicotine. 1-2 puffs per day Smoking Status Reviewed: 11/13/18 Vaping No nicotine. 1-2 puffs per day ETOH Use Denies alcohol use Recreational Drug Use Denies Drug Use Tobacco Use Start: Unknown End: Patient is a former 02/2017 now vapes, Unknown smoker no nicotine Exercise Type/Frequency Does not exercise Allergies, Adverse Reactions, Alerts Active Allergies Reaction Severity Comments Date Niacin Urticaria 05/10/2015 Adhesive Tape 04/19/2016 Medications Active Medications SIG Qnty Indications Ordering Date Provider Ranitidine HCL Take 1 Tablet By 60tabs K44.9 Aden Dumont NP 09/13/2018 150mg Mouth Twice A Day Tablets as Needed Vistaril take 1 to 2 60caps F41.9 Aden Dumont NP 05/27/2018 25mg capsules by mouth Capsules four times a day as needed for anxiety/sleep Pantoprazole Sodium 1 by mouth every 30tabs K44.9 Aden Dumnot NP [address] Sildenafil Citrate 1 tab 30 mins prior 5tabs Aden Dumont NP 02/06/2018 to intercourse 100mg Tablets Meclizine HCL take one tablet 45tabs H81.10 Aden Dumont NP 07/14/2017 25mg every 6 hours as Tablets needed for dizziness Baclofen Take 1 And 1/2 To 2 180tabs S16.1xxA Aden Dumont NP 04/03/2017 10mg Tablets Tablets By Mouth Every 8 Hours as Needed For Muscle Spasms *Max 6/Day* Meloxicam Take 1-2 Tablets By 60tabs Aden Dumont NP 08/21/2015 7.5mg Mouth Once Daily as Tablets Needed Gabapentin Take 2 Capsules By 180caps Aden Dumont NP 08/21/2015 300mg Mouth 3 Times Daily Capsules Benazepril HCL Take 1 Tablet By 30tabs I10 Aden Dumont NP 08/11/2015 10mg Mouth Daily Tablets Amlodipine Besylate Take 1 Tablet By 30tabs Aden Dumont NP 08/11/2015 Mouth Daily 10mg Tablets Simvastatin Take 1 Tablet By 30tabs E78.5 Aden Dumont NP 06/09/2012 10mg Mouth Every Night Tablets Propranolol HCL ER Take One Capsule By 30caps Aden Dumont NP Mouth Every Night 160mg Caps ER 24HR Oxymorphone HCL ER 1 tablet po Am/PM ( [facility], alternate time MD Didier 30mg Tablets ER 12HR taken of the 10mg tablets) Oxymorphone HCL 1 tablet 3x a day [facility] 10mg MD Didier Tablets History Medications Levofloxacin one tablet daily 5tabs J32.0 Aden Dumont NP 07/15/2018 - 750mg for 5 days. 07/20/2018 Tablets Levofloxacin one tablet daily 5tabs Darrian32.0 Aden Dumont NP 07/10/2018 - 750mg for 5 days. 07/14/2018 Tablets Triamcinolone apply thin film 80gm Aden Dumont NP 05/27/2018 - Acetonide twice daily 11/12/2018 0.1% Cream Levofloxacin one by mouth 10tabs J32.0 Aden Dumont NP 04/13/2018 - 500mg daily for 10 days 04/23/2018 Tablets Doxycycline Hyclate one tablet twice 20caps Darrian32.0 Aden Dumont NP 2017 - daily for 10 04/13/2018 100mg Capsules days. Levofloxacin one by mouth 10tabs Aden Dumont NP 01/15/2018 - 500mg daily for 10 days 01/23/2018 Tablets Cefuroxime Axetil one tablet twice 20tabs J01.90 Aden Dumont NP 2017 - daily for 10 01/08/2018 250mg Tablets days. Doxycycline Hyclate one tablet twice 28caps J01.90 Aden Dumont NP 2017 - daily for 14 12/29/2017 100mg Capsules days. Doxycycline Hyclate one tablet twice 20caps J01.90 Aden Dumont NP 2017 - daily for 10 09/18/2017 100mg Capsules days. Doxycycline Hyclate one tablet twice 20caps Aden Dumont NP 07/25/2017 - daily for 10 08/04/2017 100mg Capsules days. Clarithromycin One tablet twice 28tabs J01.90 Aden Dumont NP 07/14/2017 - 500mg daily x 14 days 07/23/2017 Tablets Triamcinolone apply thin film 80gm R21 Aden Dumont NP 07/14/2017 - Acetonide twice daily 05/27/2018 0.1% Cream Lansoprazole Take 1 Capsule By 60caps K44.9 Aden Dumont NP 06/06/2017 - 15mg Mouth Twice Daily 09/11/[address] Iglesias 1 by mouth every 10tabs J01.90 Aden Dumont NP 06/06/2017 - 500mg day 06/16/2017 Tablets Dexilant 1 by mouth every 30caps K44.9 Aden Dumont NP 05/12/2017 - 30mg day 05/12/2017 Capsules Amoxicillin/Clavulan take one tablet 20tabs J01.90 Aden Dumont NP 2016 - ate Potassium q12 hours for 10 05/22/2017 days 875-125mg Tablets Lansoprazole 1 by mouth twice 60caps K44.9 Aden Dumont NP 05/12/2017 - 15mg day 05/13/2017 Capsules Levofloxacin one by mouth 7tabs J01.90 Aden Dumont NP 04/03/2017 - 500mg daily for 7 days 05/11/2017 Tablets Ranitidine 150 one by mouth 60tabs K44.9 Aden Dumont NP 04/03/2017 - Maximum Strength twice a day as 09/13/2018 needed 150mg Tablets Amoxicillin/Clavulan take one tablet 20tabs J01.90 Aden Dumont NP 2016 - ate Potassium q12 hours for 10 04/05/2017 days 875-125mg Tablets Proctosol HC apply thin film 28.350gm K64.9 Aden Dumont NP 01/30/2017 - 2.5% to affected area 05/05/2017 Cream 2-4 times daily Anusol-HC one suppository 30units K64.9 Aden Dumont NP 01/20/2017 - 25mg twice daily for 2 01/30/2017 Suppository weeks. Amoxicillin/Clavulan take one tablet 20tabs J01.90 Aden Duomnt NP 2016 - ate Potassium q12 hours for 10 01/27/2017 days 875-125mg Tablets Silver Sulfadiazine apply a thin film 25gm T25.022A Aden Dumont NP 2016 - of cream to open 01/20/2017 1% Cream skin twice a day with dressing changes. Amoxicillin/Clavulan take one tablet 20tabs J01.90 Aden Dumont NP 2016 - ate Potassium q12 hours for 10 10/12/2016 days 875-125mg Tablets Cephalexin take one tablet 21tabs L72.3 Aden Dumont NP 05/31/2016 - 500mg every 8 hours for 06/07/2016 Tablets 7 days Chlorzoxazone One tablet every 60tabs Aden Dumont NP 03/06/2016 - 500mg 8 hours as needed 05/13/2017 Tablets Augmentin 1 tablet by mouth 20tabs J01.90 Aden Dumont NP 03/05/2016 - 875-125mg q12 hours for 10 03/15/2016 Tablets days Skelaxin one tablet every 60tabs Aden Dumont NP 03/05/2016 - 800mg 8 hours as needed 03/06/2016 Tablets for muscle pain/spasm Amoxicillin/Clavulan take one tablet 20tabs J01.90 Aden Dumont NP 2015 - ate Potassium q12 hours for 10 12/31/2015 days 875-125mg Tablets Blood Pressure for home 1units I10 Aden Dumont NP 08/11/2015 - Monitor Automatic monitoring, 3 11/12/2018 With Large Cuff times weekly Kit Amoxicillin/Clavulan take one tablet 20tabs J01.90 Aden Dumont NP 2015 - ate Potassium q12 hours for 10 08/21/2015 days 875-125mg Tablets Pantoprazole Sodium Take 1 Tablet By 30tabs K44.9 Aden Dumont NP 2015 - Mouth Every Day 09/03/2017 40mg Tablets Lorazepam 1 tablet po as Johny Duvall, - 1mg Tablets needed 90 mins 12/07/2015 prior to MRI Methocarbamol 2-3 tablet by 60tabs Aden Dumont NP - 750mg mouth daily as 03/05/2016 Tablets needed Ropinirole HCL take 1 tablet by 90tabs Maame Herrera, - 1mg mouth three times N.P. 06/06/2017 Tablets daily for restless legs Aspir-Low 1 by mouth every Unknown - 81mg day Unknown Tablets Aspirin Adult Low 1 by mouth every Unknown - Dose day 11/12/2018 81mg Tablets Propranolol HCL ER 1 by mouth every Unknown - day Unknown 160mg Caps ER 24HR Lansoprazole one twice a day K44.9 Unknown - 15mg 02/24/2018 Medications Administered in Office Medication SIG Qnty Indications Ordering Provider Date Technetium TC 99M Richard Purvis M.D., [facility], 06/12/2015 Tetrofosmin, Per Unit Dose FSCAI Up To 40 Millicuries Injection Immunizations CPT Code Status Date Vaccine Reaction Lot # [id number] Given 03/19/2016 Influ Virus Vaccine, no reaction noted ... [id number] Quadrivalent, Split Virus, Im Fluzone not PF Vital Signs Date Vital Result Comment 11/13/2018 8:12am Height 70 inches 5'10" Weight 265.25 lb Heart Rate 56 /min BP Systolic Sitting 134 mmHg Lue large cuff BP Diastolic Sitting 78 mmHg Lue large cuff Respiratory Rate 16 /min O2 % BldC Oximetry 96 % On Ra BMI (Body Mass Index) 38.1 kg/m2 09/28/2018 7:23am Height 70 inches 5'10" Weight 255.00 lb Heart Rate 60 /min BP Systolic Sitting 120 mmHg Lue large cuff BP Diastolic Sitting 76 mmHg Lue large cuff Respiratory Rate 12 /min O2 % BldC Oximetry 96 % BMI (Body Mass Index) 36.6 kg/m2 Neck Circumference in inches 17 07/10/2018 9:55am Height 70 inches 5'10" Weight 267.50 lb Heart Rate 56 /min BP Systolic 115 mmHg BP Diastolic 70 mmHg Body Temperature 97.9 F O2 % BldC Oximetry 98 % BMI (Body Mass Index) 38.4 kg/m2 05/28/2018 10:16am Height 70 inches 5'10" Weight 260.00 lb Heart Rate 72 /min BP Systolic Sitting 130 mmHg BP Diastolic Sitting 82 mmHg Respiratory Rate 18 /min Body Temperature 97.6 F BMI (Body Mass Index) 37.3 kg/m2 05/27/2018 8:47am Height 70 inches 5'10" Weight 260.00 lb Heart Rate 64 /min BP Systolic 124 mmHg BP Diastolic 78 mmHg Body Temperature 97.5 F O2 % BldC Oximetry 97 % BMI (Body Mass Index) 37.3 kg/m2 04/08/2018 12:58pm Height 70 inches 5'10" Weight 254.00 lb Heart Rate 58 /min BP Systolic 123 mmHg BP Diastolic 75 mmHg O2 % BldC Oximetry 98 % BMI (Body Mass Index) 36.4 kg/m2 02/06/2018 4:33pm Height 70 inches 5'10" Weight 251.00 lb Heart Rate 57 /min BP Systolic 121 mmHg BP Diastolic 78 mmHg O2 % BldC Oximetry 98 % BMI (Body Mass Index) 36.0 kg/m2 12/29/2017 1:35pm Height 70 inches 5'10" Weight 251.75 lb Heart Rate 61 /min BP Systolic 107 mmHg BP Diastolic 64 mmHg Body Temperature 98.0 F O2 % BldC Oximetry 96 % BMI (Body Mass Index) 36.1 kg/m2 11/03/2017 1:59pm Height 70 inches 5'10" Weight 252.25 lb Heart Rate 64 /min BP Systolic 111 mmHg BP Diastolic 71 mmHg Body Temperature 97.2 F O2 % BldC Oximetry 97 % BMI (Body Mass Index) 36.2 kg/m2 10/03/2017 8:21am Height 70 inches 5'10" Weight 248.00 lb w/ shoes Heart Rate 56 /min reg BP Systolic Sitting 110 mmHg Rue BP Diastolic Sitting 74 mmHg Rue BP Systolic Standing 108 mmHg Rue BP Diastolic Standing 74 mmHg Rue Respiratory Rate 16 /min BMI (Body Mass Index) 35.6 kg/m2 Ejection Fraction 55-60% as of 2014 echo 09/11/2017 9:51am Weight 250.50 lb Heart Rate 58 /min BP Systolic 122 mmHg BP Diastolic 76 mmHg Body Temperature 96.5 F O2 % BldC Oximetry 98 % 09/08/2017 3:39pm Weight 256.25 lb Heart Rate 67 /min BP Systolic 132 mmHg BP Diastolic 76 mmHg Body Temperature 97.3 F O2 % BldC Oximetry 94 % 07/14/2017 4:25pm Weight 256.00 lb Heart Rate 61 /min BP Systolic 128 mmHg BP Diastolic 74 mmHg O2 % BldC Oximetry 95 % 06/09/2017 3:14pm Weight 258.00 lb Heart Rate 60 /min BP Systolic 120 mmHg BP Diastolic 70 mmHg Body Temperature 97.3 F O2 % BldC Oximetry 96 % 06/06/2017 11:00am Weight 257.00 lb Heart Rate 61 /min BP Systolic 110 mmHg BP Diastolic 70 mmHg Body Temperature 97.3 F O2 % BldC Oximetry 95 % 05/14/2017 3:06pm Height 70 inches 5'10" Weight 250.00 lb w/ shoes Heart Rate 60 /min BP Systolic Sitting 126 mmHg lue large cuff BP Diastolic Sitting 84 mmHg lue large cuff BP Systolic Standing 118 mmHg lue large cuff BP Diastolic Standing 84 mmHg lue large cuff Respiratory Rate 18 /min BMI (Body Mass Index) 35.9 kg/m2 Ejection Fraction no echo 05/12/2017 10:19am Height 70 inches 5'10" Weight 253.00 lb Heart Rate 59 /min BP Systolic Sitting 126 mmHg BP Diastolic Sitting 88 mmHg Body Temperature 98.6 F O2 % BldC Oximetry 97 % BMI (Body Mass Index) 36.3 kg/m2 04/03/2017 9:16am Weight 254.50 lb Heart Rate 60 /min BP Systolic Sitting 136 mmHg BP Diastolic Sitting 82 mmHg O2 % BldC Oximetry 98 % 03/26/2017 11:08am Weight 251.50 lb Heart Rate 96 /min BP Systolic Sitting 132 mmHg BP Diastolic Sitting 90 mmHg BP Systolic Recheck 134 mmHg BP Diastolic Recheck 82 mmHg Body Temperature 98.0 F O2 % BldC Oximetry 60 % 02/26/2017 8:55am Height 70 inches 5'10" Weight 248.00 lb Heart Rate 64 /min Respiratory Rate 16 /min Body Temperature 97.1 F Pain Level 5 BMI (Body Mass Index) 35.6 kg/m2 01/30/2017 2:35pm Heart Rate 67 /min BP Systolic Sitting 122 mmHg BP Diastolic Sitting 82 mmHg Body Temperature 96.9 F O2 % BldC Oximetry 98 % 01/20/2017 8:54am Heart Rate 68 /min BP Systolic Sitting 132 mmHg BP Diastolic Sitting 74 mmHg O2 % BldC Oximetry 98 % 12/06/2016 1:57pm Weight 246.00 lb Heart Rate 67 /min BP Systolic Sitting 122 mmHg BP Diastolic Sitting 74 mmHg Body Temperature 96.9 F O2 % BldC Oximetry 93 % 10/02/2016 1:57pm Weight 248.00 lb Heart Rate 74 /min BP Systolic Sitting 128 mmHg BP Diastolic Sitting 70 mmHg Body Temperature 98.4 F O2 % BldC Oximetry 97 % 07/19/2016 11:37am Height 70 inches 5'10" Weight 241.50 lb Heart Rate 62 /min BP Systolic 120 mmHg BP Diastolic 62 mmHg Body Temperature 97.8 F O2 % BldC Oximetry 93 % BMI (Body Mass Index) 34.6 kg/m2 07/03/2016 11:05am Height 70 inches 5'10" Weight 240.00 lb Heart Rate 81 /min BP Systolic Sitting 128 mmHg BP Diastolic Sitting 78 mmHg Respiratory Rate 18 /min BMI (Body Mass Index) 34.4 kg/m2 05/31/2016 9:09am Weight 242.00 lb with shoes Heart Rate 66 /min BP Systolic Sitting 120 mmHg BP Diastolic Sitting 88 mmHg Body Temperature 98.6 F O2 % BldC Oximetry 98 % 05/10/2016 8:15am Height 70 inches 5'10" Weight 242.00 lb w/ shoes Heart Rate 70 /min reg BP Systolic Sitting 124 mmHg Rue, lg cuff BP Diastolic Sitting 82 mmHg Rue, lg cuff BP Systolic Standing 120 mmHg Rue BP Diastolic Standing 84 mmHg Rue Respiratory Rate 16 /min BMI (Body Mass Index) 34.7 kg/m2 Ejection Fraction 55-60% as of 05/25/15 echo 05/07/2016 9:04am Weight 243.00 lb with shoes Heart Rate 70 /min BP Systolic Sitting 116 mmHg BP Diastolic Sitting 82 mmHg O2 % BldC Oximetry 98 % 04/23/2016 8:18am Height 70 inches 5'10" Weight 230.00 lb Pain Level 6 BMI (Body Mass Index) 33.0 kg/m2 04/19/2016 1:01pm Height 70 inches 5'10" Weight 230.00 lb Heart Rate 66 /min BP Systolic 118 mmHg BP Diastolic 78 mmHg Respiratory Rate 18 /min Body Temperature 98.2 F BMI (Body Mass Index) 33.0 kg/m2 04/04/2016 9:22am Height 69 inches 5'9" Weight 238.00 lb Heart Rate 64 /min BP Systolic Sitting 126 mmHg BP Diastolic Sitting 84 mmHg Respiratory Rate 16 /min Pain Level 6 BMI (Body Mass Index) 35.1 kg/m2 03/19/2016 9:02am Height 69 inches 5'9" Weight 238.00 lb Heart Rate 61 /min BP Systolic 129 mmHg BP Diastolic 80 mmHg Body Temperature 98.3 F O2 % BldC Oximetry 96 % BMI (Body Mass Index) 35.1 kg/m2 03/07/2016 8:44am Height 70 inches 5'10" Weight 235.00 lb Heart Rate 60 /min BP Systolic Sitting 126 mmHg BP Diastolic Sitting 68 mmHg Respiratory Rate 16 /min Pain Level 9 BMI (Body Mass Index) 33.7 kg/m2 03/05/2016 11:43am Weight 235.00 lb Heart Rate 64 /min BP Systolic Sitting 142 mmHg BP Diastolic Sitting 84 mmHg Respiratory Rate 15 /min Body Temperature 98.4 F O2 % BldC Oximetry 99 % 03/04/2016 11:47am Height 70 inches 5'10" Weight 233.00 lb BP Systolic Sitting 126 mmHg BP Diastolic Sitting 80 mmHg Pain Level 3 BMI (Body Mass Index) 33.4 kg/m2 02/22/2016 8:37am Height 70 inches 5'10" Weight 233.00 lb Heart Rate 60 /min BP Systolic Sitting 136 mmHg BP Diastolic Sitting 84 mmHg Respiratory Rate 16 /min Pain Level 7 BMI (Body Mass Index) 33.4 kg/m2 02/05/2016 2:00pm Weight 233.00 lb w/ shoes Heart Rate 80 /min BP Systolic Sitting 130 mmHg BP Diastolic Sitting 80 mmHg O2 % BldC Oximetry 98 % Ra 01/01/2016 9:06am Height 70.5 inches 5'10.50" Weight 234.00 lb Heart Rate 78 /min BP Systolic Sitting 124 mmHg BP Diastolic Sitting 84 mmHg Pain Level 6 BMI (Body Mass Index) 33.1 kg/m2 12/20/2015 9:23am Weight 237.00 lb Heart Rate 60 /min BP Systolic Sitting 138 mmHg BP Diastolic Sitting 88 mmHg Body Temperature 97.3 F O2 % BldC Oximetry 98 % 12/08/2015 8:47am Weight 233.75 lb Heart Rate 61 /min BP Systolic Sitting 141 mmHg BP Diastolic Sitting 93 mmHg O2 % BldC Oximetry 97 % 08/21/2015 9:26am Height 68.5 inches 5'8.50" Weight 241.00 lb Heart Rate 64 /min BP Systolic Sitting 134 mmHg BP Diastolic Sitting 88 mmHg Respiratory Rate 15 /min Body Temperature 98.0 F O2 % BldC Oximetry 98 % BMI (Body Mass Index) 36.1 kg/m2 08/11/2015 9:24am Height 68.5 inches 5'8.50" Weight 242.00 lb Heart Rate 66 /min BP Systolic Sitting 158 mmHg BP Diastolic Sitting 94 mmHg Body Temperature 98.1 F O2 % BldC Oximetry 96 % BMI (Body Mass Index) 36.3 kg/m2 05/10/2015 9:25am Height 70 inches 5'10" Weight 240.25 lb with shoes Heart Rate 66 /min BP Systolic Sitting 138 mmHg LA lg cuff BP Diastolic Sitting 78 mmHg LA lg cuff BP Systolic Standing 140 mmHg LA lg cuff BP Diastolic Standing 90 mmHg LA lg cuff Respiratory Rate 16 /min BMI (Body Mass Index) 34.5 kg/m2 Ejection Fraction 55-60% date 06/17/12 ECHO 01/02/2011 2:40pm Height 70 inches 5'10" Weight 240.00 lb Heart Rate 74 /min BP Systolic 133 mmHg BP Diastolic 90 mmHg BMI (Body Mass Index) 34.4 kg/m2 Results Test Date Facility Test Result H/L Range Note Laboratory test 05/26/2018 [facility] B-Type Natriuretic 86 pg/ mL <=[address] [place] [address] [phone] Lactic Acid 0.5 mmol/L N 0.5-2.0 1 CKMB 05/26/2018 [facility] CKMB ng/mL 3.2 ng/mL N 0.6-6.[address] [place] [address] [phone] CBC Auto Diff 05/26/2018 [facility] White Blood 10.1 10^3/uL N 3.5-10.[address] [place] [address] [phone] Red Blood Count 5.40 10^6/uL N 4.00-5.40 Hemoglobin 15.6 g/dL N 14.0-18.0 Hematocrit 47 % N 42-52 Mean Corpuscular Volume 88 fL N 80-94 Mean Corpuscular Hemoglobin 29 pg N 27-31 Mean Corpuscular HGB Conc 33 g/dL N 31-36 Red Cell Distribution Width 13 % N 10.5-15 Platelet Count 205 10^3/uL N 150-450 Mean Platelet Volume 7.2 fL Low 7.4-10.4 Abs Neutrophils 7.9 10^3/uL High 1.5-7.7 Abs Lymphocytes 1.4 10^3/uL N 1.0-4.8 Abs Monocytes 0.5 10^3/uL N 0-0.8 Abs Eosinophils 0.3 10^3/uL N 0-0.6 Abs Basophils 0.1 10^3/uL N 0-0.2 Abs Nucleated RBC 0 10^3/uL Granulocyte % 77.7 % Lymphocyte % 13.5 % Monocyte % 5.2 % Eosinophil % 2.7 % Basophil % 0.9 % Nucleated Red Blood Cells % 0 Inr/Protime 05/26/2018 [facility] Inr 0.90 N 0.77-1.02 [address] [place] [address] [phone] Laboratory test 05/26/2018 [facility] Magnesium 2.1 mg/dL N 1.9-2.7 [place] [address] [phone] Troponin-I (TnI) 0.01 ng/mL <0.04 2 Comp Metabolic Panel 05/26/2018 [facility] Sodium 141 mmol/L N 135-145 [address] [place] [address] [phone] Potassium 4.2 mmol/L N 3.5-5.0 Chloride 106 mmol/L N 101-111 Co2 Carbon Dioxide 28 mmol/L N 22-32 Anion Gap 7 mmol/L N 2-11 Glucose 113 mg/dL High 70-100 Blood Urea Nitrogen 13 mg/dL N 6-24 Creatinine 0.98 mg/dL N 0.67-1.17 BUN/Creatinine Ratio 13.3 N 8-20 Calcium 9.7 mg/dL N 8.6-10.3 Total Protein 7.8 g/dL N 6.4-8.9 Albumin 4.7 g/dL N 3.2-5.2 Globulin 3.1 g/dL N 2-4 Albumin/Globulin Ratio 1.5 N 1-3 Total Bilirubin 0.50 mg/dL N 0.2-1.0 Alkaline Phosphatase 57 U/L N 34-104 Alt 20 U/L N 7-52 Ast 19 U/L N 13-39 Egfr Non- 82.7 >60 Egfr 100.1 >60 3 CBC Auto Diff 02/09/2018 [facility] White Blood 5.8 10^3/uL N 3.5-10.[address] [place] [address] [phone] Red Blood Count 5.20 10^6/uL N 4.00-5.40 Hemoglobin 15.3 g/dL N 14.0-18.0 Hematocrit 45 % N 42-52 Mean Corpuscular Volume 87 fL N 80-94 Mean Corpuscular Hemoglobin 30 pg N 27-31 Mean Corpuscular HGB Conc 34 g/dL N 31-36 Red Cell Distribution Width 14 % N 10.5-15 Platelet Count 188 10^3/uL N 150-450 Mean Platelet Volume 7.5 um3 N 7.4-10.4 Abs Neutrophils 3.3 10^3/uL N 1.5-7.7 Abs Lymphocytes 1.7 10^3/uL N 1.0-4.8 Abs Monocytes 0.5 10^3/uL N 0-0.8 Abs Eosinophils 0.3 10^3/uL N 0-0.6 Abs Basophils 0.1 10^3/uL N 0-0.2 Abs Nucleated RBC 0 10^3/uL Granulocyte % 55.9 % N 38-83 Lymphocyte % 29.9 % N 25-47 Monocyte % 8.4 % High 0-7 Eosinophil % 4.6 % N 0-6 Basophil % 1.2 % N 0-2 Nucleated Red Blood Cells % 0.3 Basic Metabolic Panel 02/09/2018 [facility] Sodium 141 mmol/L N 135-[address] [place] [address] [phone] Potassium 4.6 mmol/L N 3.5-5.0 Chloride 106 mmol/L N 101-111 Co2 Carbon Dioxide 29 mmol/L N 22-32 Anion Gap 6 mmol/L N 2-11 Glucose 107 mg/dL High 70-100 Blood Urea Nitrogen 15 mg/dL N 6-24 Creatinine 0.95 mg/dL N 0.67-1.17 BUN/Creatinine Ratio 15.8 N 8-20 Calcium 9.3 mg/dL N 8.6-10.3 Egfr Non- 85.7 >60 Egfr 103.7 >60 4 Laboratory test 02/09/2018 [facility] Vitamin B12 793 pg/mL N 180-914 5 finding [place], [place] [id number] [phone] Testosterone Free 02/09/2018 [facility] Free 7.15 4.26-16.4 6 & Total 101 Testosterone ng/[place] [address] ng/dl [phone] Testosterone 298 ng/dL 240-950 7 Laboratory test 11/06/2017 [facility] Hemoglobin A1c 6.1 % High 4.0-5.6 8 finding 101 (Glyco HGB) [place], [place] [id number] [phone] Laboratory test 11/04/2017 [facility] Vitamin B12 294 N 180- 914 9 finding 101 pg/mL [place], [place] [id number] [phone] TSH (Thyroid Stim Horm) 0.54 mcIU/mL N 0.34-5.60 Lipid Profile 11/04/2017 [facility] Triglycerides 114 mg/dL 10 (Trig/Chol/HDL) [address] [place], [place] [id number] [phone] Cholesterol 176 mg/dL 11 HDL Cholesterol 49.8 mg/dL 12 LDL Cholesterol 103 mg/dL 13 Laboratory test 11/04/2017 [facility] Glucose 122 mg/dL High 70-100 finding [address] [place], [place] [id number] [phone] Laboratory test 09/09/2017 [facility] Troponin-I 0.00 ng/mL < 0.04 finding (TnI) [place] [address] [phone] CBC Auto Diff 09/09/2017 [facility] White Blood 7.8 N 3.5- 10.[address] Count 10^3/[place] [address] [phone] Red Blood Count 5.49 10^6/uL High 4.0-5.4 Hemoglobin 16.2 g/dL N 14.0-18.0 Hematocrit 48 % N 42-52 Mean Corpuscular Volume 87 fL N 80-94 Mean Corpuscular Hemoglobin 29 pg N 27-31 Mean Corpuscular HGB Conc 34 g/dL N 31-36 Red Cell Distribution Width 13 % N 10.5-15 Platelet Count 210 10^3/uL N 150-450 Mean Platelet Volume 7.1 um3 Low 7.4-10.4 Abs Neutrophils 5.5 10^3/uL N 1.5-7.7 Abs Lymphocytes 1.5 10^3/uL N 1.0-4.8 Abs Monocytes 0.4 10^3/uL N 0-0.8 Abs Eosinophils 0.2 10^3/uL N 0-0.6 Abs Basophils 0.1 10^3/uL N 0-0.2 Abs Nucleated RBC 0 10^3/uL Granulocyte % 70.6 % N 38-83 Lymphocyte % 19.5 % Low 25-47 Monocyte % 5.6 % N 0-7 Eosinophil % 3.1 % N 0-6 Basophil % 1.2 % N 0-2 Nucleated Red Blood Cells % 0.1 Laboratory test 09/09/2017 [facility] Troponin-I (TnI) 0.00 ng/ mL <0.04 finding [address] [place] [address] [phone] Comp Metabolic 09/09/2017 [facility] Division Sodium 141 mmol/L N 139- 145 Panel [address] [place] [address] [phone] Potassium 4.1 mmol/L N 3.5-5.0 Chloride 105 mmol/L N 101-111 Co2 Carbon Dioxide 28 mmol/L N 22-32 Anion Gap 8 mmol/L N 2-11 Glucose 112 mg/dL High 70-100 Blood Urea Nitrogen 12 mg/dL N 6-24 Creatinine 1.00 mg/dL N 0.67-1.17 BUN/Creatinine Ratio 12.0 N 8-20 Calcium 9.7 mg/dL N 8.6-10.3 Total Protein 7.9 g/dL N 6.4-8.9 Albumin 4.7 g/dL N 3.2-5.2 Globulin 3.2 g/dL N 2-4 Albumin/Globulin Ratio 1.5 N 1-3 Total Bilirubin 0.50 mg/dL N 0.2-1.0 Alkaline Phosphatase 50 U/L N 34-104 Alt 30 U/L N 7-52 Ast 24 U/L N 13-39 Egfr Non- 81.2 >60 Egfr 104.4 >60 14 Laboratory test 09/09/2017 [facility] Lactic Acid 0.6 mmol/L N 0.5-2.[address] [place] [address] [phone] Laboratory test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 post-traumatic M.D. headache, intractable Office 05/31/2016 [facility] Internal Medicine Aden Dumont, L72.3 Sebaceous cyst Visit 9:20a [facility] [employer] CREW LEADER R68.82 Decreased libido Office Visit 05/10/2016 Kusum Arora Z01.818 Encounter for other 8:30a Cardiology Of [place], preprocedural [facility] FACC examination R07.9 Chest pain, unspecified I10 Essential (primary) hypertension Z72.0 Tobacco use Office Visit 05/07/2016 9:00a [facility] Internal Aden Dumont, Z01.818 Encounter for other Medicine - [employer]W LEADER preprocedural [facility] examination S46.101A Unsp injury of nona/sal/tend long hd bicep, right arm, init I10 Essential (primary) hypertension K21.9 Gastro-esophageal reflux disease without esophagitis R07.9 Chest pain, unspecified Office Visit 04/23/2016 8:15a Orthopedic Vanessa Lay, S46.011A Strain of Services Of MD castellano/kian the C.M.A. 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 CIRC[employer]ATION CREW LEADER of face Office Visit 03/19/2016 9:00a [facility] Internal Aden Dumont, Z00.00 Encntr for [facility] [employer] CREW LEADER general adult medical exam w/o abnormal findings I10 Essential (primary) hypertension K21.9 Gastro-esophageal reflux disease without esophagitis R73.01 Impaired fasting glucose Z23 Encounter for immunization Office Visit 03/05/2016 11:40a [facility] Internal Aden Dumont NP M54.5 Low back pain 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 myelopathy or radiculopathy, cervical region M54.5 Low back pain Office Visit 02/22/2016 8:30a Orthopedic Vanessa Lay, S46.011A Strain of Services Of MD castellano/kian the C.M.A. rotator cuff of right shoulder, init S46.101A Unsp injury of nona/fasc/tend long hd bicep, right arm, init M75.21 Bicipital tendinitis, right shoulder Office Visit 02/05/2016 10:40a [facility] Internal Aden Tim, M25.511 Pain in right Medicine - [facility] CIRCULATION CREW LEADER shoulder M89.8x8 Other specified disorders of bone, other site Office Visit 01/01/2016 9:30a Neurosurgery Hardeep Mccrary M54.2 Cervicalgia Services Of Marissa Clark M54.5 Low back pain Office Visit 12/20/2015 9:20a [facility] Internal Aden Tim, J01.90 Acute sinusitis, Medicine - [facility] CIRCULATION CREW LEADER unspecified Office Visit 12/08/2015 8:40a [facility] Internal Aedn Tim, M54.2 Cervicalgia Medicine - [facility] CIRCULATION CREW LEADER M54.9 Dorsalgia, unspecified R51 Headache R68.84 Jaw pain Office Visit 08/21/2015 9:20a [facility] Internal Aden Tim, I10 Essential ( primary) Medicine - [facility] CIRC[employer]ATION CREW LEADER hypertension R68.84 Jaw pain Office Visit 08/11/2015 9:20a [facility] Internal Aden Tim, I10 Essential ( primary) Medicine - [facility] CIRC[employer]ATION CREW LEADER hypertension K21.9 Gastro-esophageal reflux disease without esophagitis J01.90 Acute sinusitis, unspecified Office Visit 05/10/2015 9:40a [facility] Richard Purvis, R07.9 Chest pain, Of [facility] MKane, FACC, unspecified FSCAI E78.5 Hyperlipidemia, unspecified I10 Essential (primary) hypertension Z72.0 Tobacco use Office Visit 07/02/2012 8:00a [facility] Richard Purvis, 401.9 Hypertension Of Marissa Clark, FACC, Unspec FSCAI 272.4 Hyperlipidemia Other Unspec Office Visit 06/09/2012 1:15p [facility] Richard Purvis, 401.9 Hypertension Of [facility] Brittney.Fermín., FACC, Unspec FSCAI 272.4 Hyperlipidemia Other Unspec Office Visit 03/04/2011 9:15a Orthopedic Omari Still, 727.09 Synovitis & Services Of Amber Tenosynovitis Other C.M.A. Office Visit 01/02/2011 2:15p Orthopedic Omari Still, 719.46 Pain Joint Lower Services Of Amber Leg C.M.A. Plan of Treatment Future Appointment(s):12/30/2018 8:00 am - Leigh Garrison NP at [facility]11/13/2018 - Leigh Garrison NPG47.33 Obstructive sleep apnea (adult) (pediatric)Follow up:6 weeksRecommendations:If you have any sleepiness while driving you MUST avoid operating a vehicle or machinery. If you have difficulty with your equipment, or need to replace your mask or hoses, please contact your homecare agency ([facility]). If you have any further questions, please call the [facility] at [phone] Obesity, unspecifiedRecommendations:Keep up the good work with your weight loss efforts! It is important to bring your CPAP with you [facility] when you go for your bariatric surgery so you can use it when you sleep. In general, using CPAP will help you feel more well rested, which will help with your weight loss. When you are less tired, you will have more energy to exercise and make good food choices. Many people are able to lessen the severity of their sleep apnea or resolve it entirely with weight loss. Once you are at your goal weight, we can re-test you and see if you still have sleep apnea. You should continue using your CPAP until you have a test that shows your sleep apnea has resolved.
[2018-12-05 16:33] VITALS: BP 145/86
--- NOTE | 2018-12-05 16:47 | UC ---
Skin Complaint HPI - HPI Summary HPI Summary: 48-year-old male comes in with chief complaint of a groin rash. This started about 2 hours ago. He is been walking around today and it's quite hot outside and it came on suddenly and it was quite burning in character. Worse with walking. He did put antifungal on there and also some powder which did decrease the discomfort. He also has a healing second-degree burn on his right flank that occurred one week ago. And has been improving. - History of Current Complaint Chief Complaint: UCRash Time Seen by Provider: 12/05/18 16:30 Stated Complaint: RASH Pain Intensity: 7 - Allergy/Home Medications Allergies/Adverse Reactions: Allergies Allergy/AdvReac Type Severity Reaction Status Date / Time Adhesive Tape Allergy Severe Rash Verified 12/05/18 16:33 niacin Allergy Anaphylatic Verified 12/05/18 16:33 Shock Home Medications: Home Medications hydrOXYzine HCL TAB* [Atarax 10 MG TAB*] 10 mg PO QID 12/05/18 [History Confirmed 12/05/18] PMH/Surg Hx/FS Hx/Imm Hx Previously Healthy: Yes Cardiovascular History: Hypertension GI/ History: Gastroesophageal Reflux - Surgical History Surgical History: Yes Surgery Procedure, Year, and Place: [place] [facility] [place] right groin at doctors office. CYST BEHIND EAR. COLONOSCOPY. ENDOSCOPY - Family History Known Family History: Positive: Cardiac Disease, Hypertension, Other - GERD - Social History Alcohol Use: None Alcohol Amount: N/A beer Substance Use Type: None Smoking Status (MU): Former Smoker Type: Cigarettes Amount Used/How Often: 1 1/2 PPD X 30+ YEARS Have You Smoked in the Last Year: No When Did the Patient Quit Smoking/Using Tobacco: 2017 Household Exposure Type: Cigarettes Review of Systems All Other Systems Reviewed And Are Negative: Yes Constitutional: Positive: Negative Skin: Positive: Rash Eyes: Positive: Negative ENT: Positive: Negative Respiratory: Positive: Negative Cardiovascular: Positive: Negative Gastrointestinal: Positive: Negative Motor: Positive: Negative Neurovascular: Positive: Negative Musculoskeletal: Positive: Negative Neurological: Positive: Negative Psychological: Positive: Negative Is Patient Immunocompromised?: No Physical Exam Triage Information Reviewed: Yes Appearance: Well-Appearing, No Pain Distress, Well-Nourished Vital Signs: Initial Vital Signs Temp 97.9 F 07/13/19 16:28 Pulse 62 12/05/18 16:28 Resp 12 12/05/18 16:28 BP 145/86 12/05/18 16:28 Pulse Ox 98 12/05/18 16:28 Vital Signs Reviewed: Yes Eye Exam: Normal Eyes: Positive: Conjunctiva Clear Neck: Positive: Supple Respiratory: Positive: No respiratory distress Musculoskeletal Exam: Normal Musculoskeletal: Positive: Strength Intact, ROM Intact Neurological Exam: Normal Neurological: Positive: Alert, Muscle Tone Normal Psychological: Positive: Age Appropriate Behavior Skin: Positive: Other - Patient has a flat erythematous rash on both sides of the scrotum on the scrotum itself and also on the upper inner legs. On the right flank there is a 4 cm healing burn without any drainage or erythema. Course/Dx - Course Course Of Treatment: I recommended continuing keeping the rash dry and cool and also continuing the antifungal anti-yeast topical medication. I did a prescription for mupirocin for the healing burn although it appears that it's almost completely healed this time. Follow-up his primary care doctor get reevaluated sooner if worse or any questions or concerns. - Diagnoses Provider Diagnosis: Prickly heat, Rash of groin, Second degree burn of flank Discharge - Sign-Out/Discharge Documenting (check all that apply): Patient Departure All imaging exams completed and their final reports reviewed: No Studies - Discharge Plan Condition: Stable Disposition: HOME Prescriptions: Mupirocin 1 applic TP BID #[id number] [id number] Patient Education Materials: Second Degree Burn (ED), Acute Rash (ED) Referrals: Aden Dumont NP [Primary Care Provider] - Additional Instructions: FOLLOW UP WITH YOUR DOCTOR IF NOT COMPLETELY IMPROVED. CONTINUE TO KEEP THE GROIN RASH DRY AND COOL. GET RECHECKED SOONER IF YOUR CONDITION WORSENS OR ANY QUESTIONS OR CONCERNS. - Billing Disposition and Condition Condition: STABLE Disposition: Home
== END 2018-12-05 16:54 | disposition home or self-care (01) ==
LOC: UCEAST 16:25
DX: R21 Rash and other nonspecific skin eruption (principal); L74.0 Miliaria rubra; T21.22XA Burn of second degree of abdominal wall, initial encounter; T31.0 Burns involving less than 10% of body surface; X19.XXXA Contact with other heat and hot substances, initial encounter; Y92.9 Unspecified place or not applicable; I10 Essential (primary) hypertension; K21.9 Gastro-esophageal reflux disease without esophagitis; Z87.891 Personal history of nicotine dependence
CPT/HCPCS: 99212; G0463

== ENCOUNTER 2019-03-02 05:52 | Inpatient (IN) | payer OTHER ==
[~2019-03-02 05:52] MED LIST changes: -Buffered Lidocaine 0.9% SYRIN* 5 ML/SYR SYRINGE INTRADERM ONE; -Buffered Lidocaine 0.9% SYRIN* 5 ML/SYR SYRINGE ONE; +Buffered Lidocaine 1% SYRIN* 1 ML/SYRINGE INTRADERM ONE; -Famotidine IV* 10 MG/ML 2 ML (20 mg) ONE
--- OUTSIDE RECORDS SUMMARY | 2019-03-02 05:55 | XMS REPORT | Continuity of Care Document ---
:1970 External Reference #:[id number] Author Name Suleman Norton DO [facility] (transmitted by agent of provider Rachell Wiggins) Address [address] [place] [address] Care Team Providers Name Role Phone Aden Dumont NP - Internal Medicine Care Team Information Reports Analyst Problems Active Problems Provider Date Chest pain Richard Purvis M.D., [facility], [facility] Onset: 05/10/2015 Hyperlipidemia Richard Purvis M.D., [facility], [facility] Onset: 05/10/2015 Essential hypertension Richard Purvis M.D., [facility], [facility] Onset: 05/10/2015 Tobacco use Richard Purvis M.D., [facility], [facility] Onset: 05/10/2015 Chronic pain Aden Dumont NP Onset: 08/13/2015 Gastroesophageal reflux disease Aden Dumont NP Onset: 08/13/2015 History of traumatic brain injury Aden Dumont NP Onset: 09/08/2015 Claustrophobia Aden Dumont NP [...] Vanessa Lay MD Onset: 04/23/2016 shoulder region Social History Type Date Description Comments Sex Unknown Tobacco Use Start: Unknown End: Former Cigarette Smoker Unknown Tobacco Use Start: Unknown Vaping No nicotine. 1-2 puffs per day Smoking Status Reviewed: 01/15/19 Vaping No nicotine. 1-2 puffs per day [...] 60caps F41.9 Aden Dumont NP 05/27/2018 25mg Capsules capsules by mouth four times a day as needed for anxiety/sleep Pantoprazole Sodium 1 by mouth every 30tabs K44.9 Aden Dumont NP [address] Meclizine HCL take one tablet 45tabs H81.10 Aden Dumont NP 07/14/2017 25mg every 6 hours as Tablets needed for dizziness Baclofen Take 1 & 1/2-2 180tabs S16.1xxA Aden Dumont NP 04/03/2017 10mg Tablets Tablets By Mouth Every 8 Hours as Needed For Muscle Spasms *Max 6/Day* Meloxicam Take 1-2 Tablets 60tabs Aden Dumont NP 08/21/2015 7.5mg Tablets By Mouth Once Daily as Needed Gabapentin Take 2 Capsules 180caps Aden Dumont NP 08/21/2015 300mg By Mouth 3 Times Capsules Daily Benazepril HCL Take 1 Tablet By 30tabs I10 Aden Dumont NP 08/11/2015 10mg Mouth Daily Tablets Amlodipine Besylate Take 1 Tablet By 30tabs Aden Dumont NP 08/11/2015 Mouth Daily 10mg Tablets Simvastatin Take 1 Tablet By 30tabs E78.5 Aden Dumont NP 06/09/2012 10mg Mouth Every Night Tablets Oxymorphone HCL 1 tablet 3x a day Didier Flores 10mg MD Tablets Oxymorphone HCL ER 1 tablet po Am/PM Efejodi Didier, 30mg ( alternate time MD Tablets ER 12HR taken of the 10mg tablets) Propranolol HCL ER Take One Capsule 30caps Aden Dumont NP By Mouth Every 160mg Caps ER 24HR Night History Medications Ketoconazole apply twice daily 60gm Aden Dumont NP 01/06/2019 - 2% Cream to affected area 01/14/2019 Betamethasone apply thin layer 45gm R21 Aden Dumont NP 12/16/2018 - Dipropionate to affected areas 01/14/2019 0.05% Cream twice daily. Medications Administered in Office Medication SIG Qnty Indications Ordering Provider Date Technetium TC 99M Richard Purvis M.D., [facility], 06/12/2015 Tetrofosmin, Per Unit Dose FSCAI Up To 40 Millicuries Injection Immunizations CPT Code Status Date Vaccine Reaction Lot # [id number] Given 03/19/2016 Influ Virus Vaccine, no reaction noted ... [id number] Quadrivalent, Split Virus, Im Fluzone not PF Vital Signs Date Vital Result Comment 01/15/2019 8:04am Height 70 inches 5'10" Weight 265.00 lb Heart Rate 56 /min BP Systolic Sitting 132 mmHg Lue large cuff BP Diastolic Sitting 78 mmHg Lue large cuff BP Systolic Standing 121 mmHg Lue large cuff BP Diastolic Standing 78 mmHg Lue large cuff Respiratory Rate 13 /min BMI (Body Mass Index) 38.0 kg/m2 Ejection Fraction 55-60% 12/30/2018 8:01am Height 70 inches 5'10" Weight 273.00 lb Heart Rate 60 /min BP Systolic 124 mmHg BP Diastolic 82 mmHg Respiratory Rate 16 /min O2 % BldC Oximetry 95 % BMI (Body Mass Index) 39.2 kg/m2 Results Description No Information Available Procedures Date Code Description Status 01/15/2019 56361 EKG Tracing & Interpretation Completed 11/03/2018 46303 Sleep Study Unattended,HRT Rate,Oxygen Sat,Resp Completed Effort/Airflow 12/02/2017 [id number] Colonoscopy Completed Medical Devices Description No Information Available Encounters Type Date Location Provider Dx Diagnosis Office Visit 01/15/2019 [facility] Suleman Jennings01.810 Encounter for 8:20a Of DO REYES [place] preprocedural cardiovascular examination Office Visit 12/30/2018 Pul[facility]ology And Leigh G47.33 Obstructive sleep 8:00a Sleep Services Of NIKO Garrison apnea (adult) [facility] (pediatric) E66.9 Obesity, unspecified Z68.39 Body mass index (BMI) 39.0-39.9, adult Office Visit 12/16/2018 2:00p [facility] 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 R21 Rash and other Medicine - [facility] nonspecific skin eruption M25.559 Pain in unspecified hip J30.89 Other allergic rhinitis R41.3 Other amnesia Z13.220 Encounter for screening for lipoid disorders Office Visit 11/13/2018 [facility] G47.33 Obstructive sleep 8:00a Sleep Services Of NIKO Garrison apnea (adult) [facility] (pediatric) E66.9 Obesity, unspecified Z68.38 Body mass index (BMI) 38.0-38.9, adult Office Visit 09/28/2018 7:30a [facility] Sleep Nahomy Hart, R06.83 Snoring Services Of [facility] E66.9 Obesity, unspecified Z68.36 Body mass index (BMI) 36.0-36.9, adult Assessments Date Code Description Provider 01/15/2019 Z01.810 Encounter for preprocedural Suleman Norton DO [facility] cardiovascular examination 12/30/2018 G47.33 Obstructive sleep apnea (adult) Leigh Garrison NP (pediatric) 12/30/2018 E66.9 Obesity, unspecified Leigh Garrison NP 12/30/2018 Z68.39 Body mass index (BMI) 39.0-39.9, adult Leigh Garrison NP 12/16/2018 R21 Rash and other nonspecific skin eruption Aden Dumont NP 12/16/2018 M25.559 Pain in unspecified hip Adenedgar Dumont NP 12/16/2018 J30.89 Other allergic rhinitis Aden Dumont NP 12/16/2018 R41.3 Other amnesia Aden Dumont NP 12/16/2018 Z13.220 Encounter for screening for lipoid Adenedgar Dumont WRAPPING MACHINE HELPER disorders 11/13/2018 G47.33 Obstructive sleep apnea (adult) Leigh Garrison NP (pediatric) 11/13/2018 E66.9 Obesity, unspecified Leigh Garrison NP 11/13/2018 Z68.38 Body mass index (BMI) 38.0-38.9, adult Leigh Garrison NP 11/03/2018 G47.33 Obstructive sleep apnea (adult) Nahomy Hart MD (pediatric) 09/28/2018 R06.83 Snoring Nahomy Hart MD 09/28/2018 E66.9 Obesity, unspecified Nahomy Hart MD 09/28/2018 Z68.36 Body mass index (BMI) 36.0-36.9, adult Nahomy Hart MD Plan of Treatment Future Appointment(s):02/01/2019 9:30 am - Suleman Norton DO FACC at [facility] [place] [facility] [place]/2019 8:00 am - Leigh Garrison NP at [facility]01/15/2019 - Suleman Norton DO FACCZ01.810 Encounter for preprocedural cardiovascular examinationNew Orders: Stress Test, Treadmill, No Imaging, Ordered: 01/15/19Comments:Do not take propranolol the night before stress testFollow up:Please schedule treadmill at [facility], hold propranolol f/u prn Functional Status Description No Information Available Mental Status Description No Information Available Referrals Refer to Reason for Referral Status Appt Date [facility] called 3x, letter sent, have not Sent 00 heard from pt [address] [place] [address] [phone]
[2019-03-02] MEDS ORDERED: Lactated Ringers 1000 ML Bag* 1,000 ML IV SCH (06:00)
[2019-03-02] MEDS ORDERED: Famotidine IV* 10 MG/ML 2 ML (20 mg) IV ONE (06:00)
[2019-03-02] MEDS ORDERED: Heparin VIAL(*) 5000 UNITS/ML VIAL (FIVE THOUSAND) ONE (06:42)
[2019-03-02] MEDS ORDERED: ceFAZolin 2 GM in NS PREMIX(*) 2 GM/100 ML BAG IVPB ONE (06:42)
[2019-03-02] MEDS ORDERED: Famotidine IV* 10 MG/ML 2 ML (20 mg) ONE (06:42)
[2019-03-02] MEDS ORDERED: Bupivacaine 0.25% EPI 200,000* 30 ML SDV ONE (07:12)
[2019-03-02] MEDS ORDERED: Methylene Blue 0.5 %* 50 MG/10 ML AMP IV ONE (07:12)
[2019-03-02] MEDS ORDERED: Lidocaine 2% PF * 5 ML VIAL ONE (07:15)
[2019-03-02] MEDS ORDERED: Rocuronium* 10 MG/ML VIAL ONE (07:15)
[2019-03-02] MEDS ORDERED: Dexamethasone IV* 4 MG/ML 1 ML (4 MG) ONE (07:15)
[2019-03-02] MEDS ORDERED: Midazolam* 1 MG/ML 5 ML VIAL (5 MG) ONE (07:15)
[2019-03-02] MEDS ORDERED: KETAMINE HCL* 50 MG/ML 10 ML VIAL ONE (07:15)
[2019-03-02] MEDS ORDERED: Propofol* 10 MG/ML 20 ML BTL ONE (07:15)
[2019-03-02] MEDS ORDERED: fentaNYL* 50 MCG/ML 5 ML VIAL (250 MCG VIAL) ONE (07:15)
[2019-03-02] MEDS ORDERED: Ondansetron INJ* 2 MG/ML VIAL ONE (07:15)
[2019-03-02] MEDS ORDERED: EPHEDrine (Pressors)* 50 MG/ML VIAL ONE (08:13)
[2019-03-02] MEDS ORDERED: fentaNYL* 50 MCG/ML 2 ML VIAL (100 MCG VIAL) IV PRN (08:48)
[2019-03-02] MEDS ORDERED: Naloxone* 0.4 MG/ML 1 ML VIAL IV PRN (08:48)
[2019-03-02] MEDS ORDERED: Ondansetron INJ* 2 MG/ML VIAL IV PRN (08:48)
[2019-03-02] MEDS ORDERED: Glycopyrrolate IV* 0.2 MG/ML 1 ML VIAL ONE (09:24)
[2019-03-02] MEDS ORDERED: Neostigmine Methylsulfate* 1 MG/ML 10 ML VIAL (1 mg/ml) ONE (09:24)
[2019-03-02] MEDS ORDERED: Ketorolac INJ* 30 MG/ML 1 ML VIAL ONE (09:24)
[2019-03-02] MEDS ORDERED: HYDROmorphone INJ1* 1 MG/ML SYRINGE ONE (09:44)
[2019-03-02] MEDS ORDERED: diPHENhydraMINE IV* 50 MG/ML 1 ml VIAL (BENADRYL) SLOW PUSH PRN (10:14)
[2019-03-02] MEDS ORDERED: Acetaminophen ADULT LIQ* 650 MG/20.3 ML UDC PO PRN (10:14)
[2019-03-02] MEDS ORDERED: Metoprolol Tartrate IV* 1 MG/ML 5 ML VIAL IV PRN (10:21)
[2019-03-02] MEDS ORDERED: fentaNYL* 50 MCG/ML 2 ML VIAL (100 MCG VIAL) ONE (10:35)
[2019-03-02] MEDS: Lactated Ringers 1000 ML Bag* 1,000 ML IV SCH ×3 (12:06→23:52)
[2019-03-02] MEDS: HYDROmorphone INJ1* 1 MG/ML SYRINGE IV SLOW PU PRN ×2 (12:31→18:05)
--- NOTE | 2019-03-02 13:02 | OP ---
CC: [facility]; Aden Dumont NP; [facility] at [facility] * DATE OF OPERATION: 03/02/19 - ROOM #352 DATE OF : 74 SURGEON: Abilio Osman MD AUTH SPECIALIST: Dr. Stein. ANESTHESIOLOGIST: Dr. Patel. ANESTHESIA: General endotracheal. PRE-OP DIAGNOSES: 1. Class 2 obesity. 2. Gastroesophageal reflux disease. 3. Hypertension. 4. Prediabetes. 5. Hyperlipidemia. 6. Obstructive sleep apnea. POST-OP DIAGNOSES: 1. Class 2 obesity. 2. Gastroesophageal reflux disease. 3. Hypertension. 4. Prediabetes. 5. Hyperlipidemia. 6. Obstructive sleep apnea. OPERATIVE PROCEDURE: Laparoscopic gastric bypass. ESTIMATED BLOOD LOSS: Less than 20 mL. IV FLUIDS: Crystalloid. SPECIMEN: None. DRAINS: None. COMPLICATIONS: None. COUNTS: The instrument, needle, and sponge counts were correct. DESCRIPTION OF PROCEDURE: The patient was brought to the operative room and placed on the table supine. Sequential compression devices were placed on both lower extremities. General anesthesia was administered. His abdomen was prepped and draped in the usual sterile fashion. Time-out was performed. Local anesthetic was infiltrated into the skin, soft tissue prior to making each incision. Entry into the abdomen was through a left upper quadrant incision accommodating a 12-mm trocar. After accessing the peritoneal cavity, carbon dioxide was insufflated to a pressure of 15 mmHg. Under direct visualization, 12- mm trocars were placed in the supraumbilical midline and in the right upper quadrant. 5-mm trocars were placed in the right upper quadrant medially, left upper quadrant laterally. A Jaskaran liver retractor was placed percutaneously in the subxiphoid position and used to elevate the left lobe of the liver. The liver appeared normal in size. Gastric anatomy revealed that there was a large epigastric fat pad, but there was no evidence of dimpling at the area of the hiatus, no evidence of the hiatal hernia. Gastric dissection proceeded at the angle of His, dissecting the stomach away from the left alex of the diaphragm. Additional dissection was then performed in the lesser curvature to enter the lesser sac and about the second crossing vein. After entering the lesser sac, the gastric pouch was created with several firings of the EndoGIA stapler of guevara cartridges creating a gastric pouch, which approximated 15 to 30 mL volume. The staple lines were noted to be intact and hemostatic. Omentum was then retracted cephalad and divided down the midline with a LigaSure. Transverse colon was retracted cephalad. Ligament of Treitz was identified. Jejunum was measured out approximately 50 to 60 cm. This loop of bowel was sutured to the staple line of the gastric pouch with interrupted 2-0 silks. Next, the gastrojejunal anastomosis was created with the EndoGIA stapler with a 30 mm guevara cartridge. A common gastroenterotomy was run closed with 3-0 PDS over the 34- Citizen Of [place] gastric tube. The loop of the jejunum was then divided to the left of the anastomosis with the EndoGIA stapler with a guevara cartridge. The anastomosis was tested with methylene blue dye solution instilled through the orogastric tube. No leak was identified. The Teo limb was then measured out 75 cm and at this point, a functional end-to - side jejunojejunostomy was created with a linear 60-mm guevara stapler. The common enterotomy was closed with 3-0 PDS running it to and fro, tying it to itself. Anti- obstruction sutures were placed at the proximal portion with a 3- 0 silk. Mesenteric defect was closed with 3-0 silk in interrupted figure-of- eight fashion. Hemostasis was assured. Orientation of the bowel was confirmed. Jaskaran was removed under direct visualization and the ports were removed as well. Carbon dioxide was released. Incisions were closed with 4-0 Monocryl and DermaFlex was applied to the wounds. The patient tolerated the procedure well, was extubated, and transferred to Recovery in stable condition. [id number]/[facility] #: [id number] OTF
[2019-03-02] MEDS: Heparin VIAL(*) 5000 UNITS/ML VIAL (FIVE THOUSAND) SUBCUT SCH ×2 (13:51→21:05)
[2019-03-02] MEDS: Ketorolac INJ* 30 MG/ML 1 ML VIAL IV SCH ×2 (13:52→19:33)
[2019-03-02] MEDS: Ondansetron INJ* 2 MG/ML VIAL IV PRN (18:14)
[2019-03-03] MEDS: Ketorolac INJ* 30 MG/ML 1 ML VIAL IV SCH ×4 (01:03→18:20)
[2019-03-03] MEDS: Heparin VIAL(*) 5000 UNITS/ML VIAL (FIVE THOUSAND) SUBCUT SCH ×3 (04:53→22:42)
[2019-03-03] MEDS: Lactated Ringers 1000 ML Bag* 1,000 ML IV SCH (06:26)
[2019-03-03] MEDS: Pantoprazole IV* 40 MG IV SCH (08:20)
[2019-03-03] MEDS ORDERED: Influenza VAC *QUAD* 2019-20* 0.5 ML SYRINGE IM ONE (09:00)
--- NOTE | 2019-03-03 10:20 | PN ---
Progress Note - Progress Note Date of Service: 03/03/19 SOAP: Subjective: Pt comfortable in bed after being seen ambulating in halls, C/O low grade temp, 99.1, chills this morning + Flatus, neg nausea or vomiting. C/O epigastric pain, small spottting on lubna shirt from supraumbilical incision site[] Objective: Temp Pulse Resp BP Pulse Ox 99.1 F 78 16 125/66 95 03/03/19 07:44 03/03/19 07:44 03/03/19 07:44 03/03/19 07:44 03/03/19 07:44 PE: Chest: CTA B/L CVS: RRR ABD: soft, Hypoactive BS's, incisions C/D/I incisional tenderness EXT: calves soft, NT [] Assessment: 48 yo male POD 1 s/p laparoscopic RNY gastric Bypass [] Plan: Start bariatric clear liquid diet, encouraged Deep Breathing, Incentive spirometry, ambulate Above D/W Dr Osman. All questions were answered []
[2019-03-03] MEDS: D5W 1/2 NS KCl 20 Meq 1000 ML* 1,000 ML IV SCH (13:06)
[2019-03-03] MEDS: Ondansetron INJ* 2 MG/ML VIAL IV PRN (18:20)
[2019-03-04] MEDS: Ketorolac INJ* 30 MG/ML 1 ML VIAL IV SCH ×2 (00:55→06:21)
[2019-03-04] MEDS: D5W 1/2 NS KCl 20 Meq 1000 ML* 1,000 ML IV SCH (04:55)
[2019-03-04] MEDS: Heparin VIAL(*) 5000 UNITS/ML VIAL (FIVE THOUSAND) SUBCUT SCH ×2 (05:32→14:14)
[2019-03-04] MEDS: Ondansetron INJ* 2 MG/ML VIAL IV PRN (06:19)
[2019-03-04] MEDS: Pantoprazole IV* 40 MG IV SCH (08:00)
[2019-03-04 11:34] VITALS: BP 141/87
[2019-03-04] MEDS ORDERED: Ketorolac INJ* 30 MG/ML 1 ML VIAL IV PUSH ONE (12:33)
--- NOTE | 2019-03-04 13:46 | PN ---
Progress Note - Progress Note Date of Service: 03/04/19 SOAP: Subjective: Comfortable, + Flatus, tolerating bariatric clear diet, ambulating well [] Objective: Temp Pulse Resp BP Pulse Ox 97.8 F 81 18 141/87 98 03/04/19 11:33 03/04/19 11:33 03/04/19 11:33 03/04/19 11:33 03/04/19 11:33 Intake & Output 03/03/19 03/04/19 03/04/19 22:59 06:59 14:59 Intake Total 1196 980 Output Total 225 2100 625 Balance 114 -8934 -708 PEX: Chest: CTA B/L CVS: RRR ABD: soft, incisions C/D/I, Hypoactive BS's EXT: calves soft, NT[] Assessment: 48 yo male POD 2 S/P RNY Bypass, tolerating bariatric clear liquid diet, + flatus, No N/V[] Plan: D/C Home today. Pain medication (Opana ER) is to be changed to Oxycodone liquid 5mg/5ml every 4 hours scheduled, the PRN IR Opana will be 5mg/5ml every 8 hours PRN. Appt's [facility] and [facility] are for 03/11/19 at 8:20 and 9:15 respectively. all questions were answered[]
[2019-03-04] MEDS ORDERED: oxyCODONE ORAL.SOLN* 5 MG/5 ML UDC PO PRN (14:37)
[2019-03-04] MEDS ORDERED: oxyCODONE ORAL.SOLN* 5 MG/5 ML UDC PO SCH (18:00)
--- NOTE | 2019-03-04 21:48 | DS ---
DISCHARGE SUMMARY: DATE OF ADMISSION: 03/02/19 DATE OF DISCHARGE: 03/04/19 ATTENDING PHYSICIAN: Dr. Abilio Osman * (DICTATED BY JUAN DAVID UMANA) REASON FOR ADMISSION: Obesity. HOSPITAL COURSE: The patient was admitted for a Teo-en-Y gastric bypass by Dr. Abilio Osman on 03/02/19. The patient tolerated the procedure well and was then transferred to the [facility] for postoperative medical care. The patient had an uneventful medical course postoperatively, advanced to a bariatric clear diet which he tolerated well. On 03/04/19, postop day 2, the patient's exam: Lungs were clear bilaterally. Heart regular rate and rhythm. The abdomen was soft. The incisions were clean , dry, and intact. He has hypoactive bowel sounds, although the patient has been passing gas. Calves soft bilaterally, nontender. Procedure performed was a laparoscopic Teo-en-Y gastric bypass. Condition at discharge is stable. The patient will be discharged to home in stable condition on 03/04/19. Of note he is a patient of the Pain Clinic and has been taking Opana 30 mg b.i.d. extended release tablets which cannot be taken during the surgery. He will be converted to oxycodone liquid elixir 6 times per day scheduled and 3 times a day as needed in lieu of the Opana pills ER and IR he had been taking preoperatively. This was discussed with the patient's at length. A paper script was given to be brought down stairs to be filled in our pharmacy sufficient quantity to get to next Friday's pain clinic appt. The patient will resume taking home medications as we discussed. The discharge instructions were given regarding his diet, his medications with great specificity. His activity levels and his followup is next Friday with both the Pain Clinic and Dr. Osman. All questions were answered. The patient was discharged home in stable condition on 03/04/19. JUAN DAVID UMANA [id number]/[facility] #: [id number] MTDD
== END 2019-03-04 15:21 | disposition home or self-care (01) | DRG 403 ==
LOC: AA 05:52 → SSU 10:14
PROVIDERS: ADMIT Surgery; ATTEND Surgery
PROC: 0D164ZA Bypass Stomach to Jejunum, Percutaneous Endoscopic Approach (ICD-10-PCS; principal; 2019-03-02 07:30)
DX: E66.01 Morbid (severe) obesity due to excess calories (principal); K21.9 Gastro-esophageal reflux disease without esophagitis; I10 Essential (primary) hypertension; R73.03 Prediabetes; E78.5 Hyperlipidemia, unspecified; G47.33 Obstructive sleep apnea (adult) (pediatric); G89.29 Other chronic pain; M06.9 Rheumatoid arthritis, unspecified; M54.9 Dorsalgia, unspecified; M25.519 Pain in unspecified shoulder; Z87.820 Personal history of traumatic brain injury; Z82.61 Family history of arthritis; Z82.62 Family history of osteoporosis; Z83.49 Family history of other endocrine, nutritional and metabolic diseases; Z80.9 Family history of malignant neoplasm, unspecified; Z87.891 Personal history of nicotine dependence; Z68.38 Body mass index [BMI] 38.0-38.9, adult; Z23 Encounter for immunization
CPT/HCPCS: 43644; 90686; C1776; J0690; J1100; J1170; J1644; J1885; J2250; J2405; J2704; J2710; J3010